=== PATIENT | female | born 1955 | race Caucasian/White ===

== ENCOUNTER → 2017-04-03 | Outpatient (CLI) | payer BC ==
[~2017-04-03] MED LIST: ACET-2267 PO; ASP81CT PO; ASPI-892 PO; AZAT50TA PO; BUDE3CAP5 PO; CHLO-159 PO; CLOP75TA PO; DICY20TA10 PO; LRT10T PO; METO-274 PO; METO100T5 PO; METR500T21 PO; OMEP40CA36 PO; PRAV20TA3 PO; PRV20T PO; RNT150T PO; VITA1CAP PO; [UNRECOGNIZED DRUG - OTHER] PO
--- NOTE | 2017-04-03 19:51 | Diagnostic Imaging Report ---
EXAMINATION: Three views of the left ribs. INDICATION: Left lower chest wall pain. FINDINGS: No left rib fracture is seen. The left lung appears normal. The heart size is slightly prominent. IMPRESSION: No left rib fracture seen. Dictated by: Dictated on workstation # [id number]
== END ==
LOC: RAD 14:02
PROVIDERS: ATTEND Nurse Practitioner Family
DX: R07.81 Pleurodynia (principal)
CPT/HCPCS: 71100

== ENCOUNTER → 2017-08-26 | Outpatient (CLI) | payer BC ==
[~2017-08-26] MED LIST changes: -METO-274 PO; +METO-395 PO
--- NOTE | 2017-08-27 18:30 | Diagnostic Imaging Report ---
Bilateral screening mammogram 2D views with tomosynthesis The current study was also evaluated with a Computer Aided Detection (CAD) system. Indication: Screening. No current complaints stated on the questionnaire. COMPARISON: 08/02/2014. FINDINGS: The breasts are composed of heterogeneously dense parenchyma which may decrease mammographic sensitivity. Benign-appearing calcifications are seen. Allowing for technique and positional differences, no suspicious change is seen. IMPRESSION: Dense breasts with no definite change. ACR BI-RADS Category 2: Benign findings. Result letter will be mailed to the patient. Note: At least 10% of breast cancer is not imaged by mammography. Dictated on workstation # [id number]
== END ==
LOC: RAD 13:53
PROVIDERS: ATTEND Nurse Practitioner Family
DX: Z12.31 Encounter for screening mammogram for malignant neoplasm of breast (principal)
CPT/HCPCS: 77067

== ENCOUNTER → 2018-06-15 | Outpatient (REF) ==
--- NOTE | 2018-06-15 15:09 | Diagnostic Imaging Report ---
INDICATION: Injury to the right wrist with pain and swelling. TIME OF EXAM: 2:40 PM FINDINGS: Three views of the right wrist demonstrates a tiny well-corticated osseous density adjacent to the ulnar styloid consistent with an old avulsion. Distal radius and ulna are without acuity. The carpus is unremarkable. Metacarpals are intact. No acute fracture is seen. IMPRESSION: No acute bony abnormality is detected. Dictated by: Dictated on workstation # [id number]
== END | disposition home or self-care (01) ==
LOC: OCC 13:53
PROVIDERS: ATTEND Nurse Practitioner Family
CPT/HCPCS: 73110

== ENCOUNTER → 2019-08-06 | Outpatient (CLI) | payer BC ==
[~2019-08-06] MED LIST changes: +METR-145 PO; -METR500T21 PO
--- NOTE | 2019-08-09 09:54 | Diagnostic Imaging Report ---
INDICATION: Routine screening. Comparison is made with prior mammogram from 08/26/2017 and 08/02/2014. 2-D and 3-D bilateral screening mammography was performed with CAD. The current study was also evaluated with a Computer Aided Detection (CAD) system. 3-D tomosynthesis was also performed and reviewed. Both breasts are heterogeneously dense, limiting the sensitivity of mammography. Benign calcifications have increased in both breasts. No dominant mass or malignant appearing microcalcifications are seen. Axillae are unremarkable. IMPRESSION: No mammographic features suspicious for malignancy are identified. ACR BI-RADS Category 2: Benign findings. Result letter will be mailed to the patient. Note: At least 10% of breast cancer is not imaged by mammography. Dictated by: Dictated on workstation # [id number]
== END ==
LOC: RAD 14:41
PROVIDERS: ATTEND Nurse Practitioner Family
DX: Z12.31 Encounter for screening mammogram for malignant neoplasm of breast (principal)
CPT/HCPCS: 77067

== ENCOUNTER 2019-09-13 15:25 | Outpatient (RCR) | payer BC ==
[~2019-09-13 15:25] MED LIST changes: -METO-395 PO; +MTP100TCR PO; +OMEP40CA27 PO; -OMEP40CA36 PO
== END 2019-10-22 09:00 | disposition home or self-care (01) ==
DX: G62.9 Polyneuropathy, unspecified (principal); K50.90 Crohn's disease, unspecified, without complications; M54.12 Radiculopathy, cervical region; I10 Essential (primary) hypertension; M54.5 Low back pain; R19.7 Diarrhea, unspecified

== ENCOUNTER → 2020-06-15 | Outpatient (CLI) | payer BC ==
--- NOTE | 2020-06-15 10:14 | Diagnostic Imaging Report ---
INDICATION: Right shoulder pain. Time of exam 9:50 AM 3 views of the right shoulder were obtained. Glenohumeral and acromioclavicular alignment are normal. Acromiohumeral space is normal. No fracture or dislocation is seen. IMPRESSION: No acute bony abnormality is detected. Dictated by: Dictated on workstation # [id number]
--- NOTE | 2020-06-15 10:23 | Diagnostic Imaging Report ---
CLINICAL INDICATION: Patient with cervical radiculopathy. EXAM: MRI of the cervical spine performed without IV contrast. Sequences include sagittal T2, sagittal T1, sagittal T2 fat-sat, and axial T2. COMPARISON: None. FINDINGS: Likely mucus retention cyst involving the posterior nasopharynx. Limited visualization of posterior fossa is unremarkable. Cervical spinal cord has normal cord caliber with no abnormal signal. There is moderate amount of fluid in the sphenoid sinus. There is no acute cervical spine fracture or dislocation. There is no abnormal vertebral body signal. There are hypertrophic spurs involving the cervical spine. There is no significant paraspinal soft tissue abnormality. C1-C2: There are degenerative spurs involving the atlantoodontoid interval anteriorly. There is no significant central canal narrowing. C2-C3: There is moderate left facet arthropathy/hypertrophy. There is no significant right neural foramen narrowing. There is moderate left neural foramen narrowing. There is no significant right neural foramen narrowing or central canal narrowing. C3-C4: There is a mild diffuse disc bulge and left paracentral disc osteophyte complex and mild left facet arthropathy. There is mild left neural foramen narrowing and no significant right neural foramen narrowing. There is mild central canal narrowing. C4-C5: There is a diffuse disc bulge and moderate loss of disc space height and bilateral uncinate spurs. There is moderate central canal stenosis. There is severe left neural foramen narrowing and no significant right neural foramen narrowing. C5-C6: There is diffuse disc bulge and moderate loss of disc space height, posterior spurs and bilateral uncinate spurs. There is severe left neural foramen narrowing and moderate right neural foramen narrowing. There is moderate to severe central canal stenosis. C6-C7: There is mild diffuse disc bulge. There is mild central canal narrowing. There is no significant neural foramen narrowing. C7-T1: There is no significant central spinal canal or neural foramen narrowing. IMPRESSION: 1: There is moderate to severe multilevel cervical spine degenerative disc disease with diffuse disc bulges, disc spurs, uncinate spurs and facet arthropathy. These findings are worse at the C4-C5 and C5-C6 levels, as described above. 2: There is moderate sphenoid sinusitis. 3: Likely small mucus retention cyst involving the posterior nasopharynx. Dictated by: Dictated on workstation # [id number]
== END ==
LOC: RAD 09:04
DX: M47.22 Other spondylosis with radiculopathy, cervical region (principal); M48.02 Spinal stenosis, cervical region; M25.78 Osteophyte, vertebrae; M50.11 Cervical disc disorder with radiculopathy, high cervical region; J32.3 Chronic sphenoidal sinusitis
CPT/HCPCS: 72141; 73030

== ENCOUNTER 2021-06-27 05:30 | Outpatient (RCR) | payer BC ==
[~2021-06-27] VITALS: Ht 162.6 cm; Wt 46.8 kg
[~2021-06-27 05:30] MED LIST changes: +ALPR0.5T PO; +GABA-486 PO; +LIPA1CAP25 PO; -OMEP40CA27 PO; +OMEP40CA6 PO
== END 2021-06-27 11:14 | disposition home or self-care (01) ==
LOC: PREOP 05:30
PROVIDERS: ATTEND Internal Medicine
DX: Z01.812 Encounter for preprocedural laboratory examination (principal); K52.9 Noninfective gastroenteritis and colitis, unspecified; R10.12 Left upper quadrant pain
CPT/HCPCS: 87635

== ENCOUNTER 2021-06-29 07:38 | Day surgery (SDC) | payer BC ==
--- NOTE | 2021-06-21 06:05 | HISTORY AND PHYSICAL ---
DATE OF SERVICE: COLONOSCOPY HISTORY AND PHYSICAL HISTORY OF PRESENT ILLNESS: The patient is a 65-year-old white female referred by Dr. Gonzales for diagnostic colonoscopy. She has a past history of Crohn's disease and it has been over five years since her last colonoscopy. This was performed in 2013 and at that time, she did not have any evidence for Crohn's disease and the terminal ileum was unremarkable as well. She did have two hyperplastic polyps removed. She did have an admission for reported Crohn's exacerbation a year later in 2014. Her medical record was reviewed and CT findings did reveal a significant bowel wall thickening, predominantly involving the ileum. The sigmoid colon also appeared to reveal some thickening at that time suspicious for Crohn's changes. She was admitted and started on prednisone. She reports resolution of her symptoms and at some point, azathioprine was initiated. She has persisted in taking azathioprine and has had several short prednisone tapers in the interval if four or five years for milder perceived flares of Crohn's for which she reports responded well. Over the past two months, she has noted increased abdominal bloating, especially after meals and over the past several weeks, she has had about a 5-pound or 6-pound of weight loss due to the discomfort that she incurs within an hour or two of eating. She reports several loose nonbloody stools per day without incontinence. She has had no night sweats, chills, fever or arthralgia. PAST MEDICAL HISTORY: Significant for coronary artery disease. She underwent stent placement around 10 years ago and has had no subsequent problems, history of hyperlipidemia and hypertension. FAMILY HISTORY: She is not aware of any family history for colon cancer or GI tract malignancy other than a grandfather, who had cancer of the pancreas. He has one sister, who had breast cancer and a grandmother, who had coronary artery disease. SOCIAL HISTORY: The patient reports no past smoking or significant drinking history. REVIEW OF SYSTEMS: CONSTITUTIONAL: Pertinent for weight loss. Denies night sweats, chills or fever. GASTROINTESTINAL: As per HPI. CARDIOVASCULAR: The patient denies chest pain, orthopnea, PND, pedal edema, syncope or presyncope. PULMONARY: Denies cough, wheezing, and dyspnea on exertion or at rest. PHYSICAL EXAMINATION: GENERAL: Reveals a thin white female, did not appear to be in acute distress. VITAL SIGNS: Blood pressure 120/86 and weight 104. HEENT: Reveals some mild pallor. No evidence for scleral icterus. CHEST: Clear. CARDIOVASCULAR: Reveals a regular rate and rhythm without murmur, S3 or S4. ABDOMEN: Soft and supple. No mass or organomegaly noted. Mild discomfort in bilateral lower quadrant noted. No bruits noted. Bowel sounds positive. No distention appreciated. EXTREMITIES: Reveal no cyanosis, clubbing or edema. ASSESSMENT AND PLAN: The patient is being set up for diagnostic colonoscopy. The findings are suspicious for exacerbated Crohn's disease or possible partial small bowel obstruction likely due to past Crohn's disease. The patient is being set up for next week. Prep instructions were given and questions were answered. I thank you for the referral of this pleasant lady. Job ID: [id number] DocumentID: [id number] Dictated Date: 06/08/2021 11:58:45 Radio Reporter Date: 06/08/2021 12:53:41 Dictated By: KIRSTIN TERRELL MD
[2021-06-29] VITALS (7 sets, daily range): BP systolic 82–108; BP diastolic 51–75
[~2021-06-29] VITALS: Ht 162.6 cm; Wt 46.8 kg
[2021-06-29] MEDS ORDERED: ATROPINE INJ 0.4 MG/ML SDV IV ONE (07:39)
[2021-06-29] MEDS ORDERED: LIDOCAINE JELLY 2% 6 ML SYRINGE MM PRN (07:45)
[2021-06-29] MEDS ORDERED: LACTATED RINGERS 1,000 ML IV STA (07:45)
[2021-06-29] MEDS ORDERED: LACTATED RINGERS 1,000 ML IV ONE (07:48)
[2021-06-29] MEDS ORDERED: MIDAZOLAM 2 MG/2 ML (VERSED) VIAL ONE (08:32)
[2021-06-29] MEDS ORDERED: PROPOFOL INJECTION 50 ML IV ONE (08:33)
--- NOTE | 2021-06-29 10:34 | Pre-Op Note & Conscious Sedat ---
Pre-Operative Progress Note H&P Reviewed The H&P was reviewed, patient examined and no changes noted. Date H&P Reviewed: Jun 29, 2021 Time H&P Reviewed: 07:45 Conscious Sedation Pre-Proced ASA Score 2 For ASA 3 and 4: Consider anesthesia and medical clearance. Also, for patients with a history of failed moderate sedation consider anesthesia. Airway Lungs Heart ASA score ASA 1: a normal healthy patient ASA 2: a patient with a mild systemic disease (mid diabetes, controlled hypertension, obesity ASA 3: a patient with a severe systemic disease that limits activity (angina, COPD, prior Myocardial infarction) ASA 4: a patient with an incapacitating disease that is a constant threat to life (CHF, renal failure) ASA 5: a moribund patient not expected to survive 24 hrs. (ruptured aneurysm) ASA 6: a declared brain- patient whose organs are being harvested. For emergent operations, add the letter E after the classification Mallampati Classification Grade 2 Sedation Plan Analgesia, Amnesia, Plan communicated to team members, Discussed options with patient/fam, Discussed risks with patient/fam The patient is an appropriate candidate to undergo the planned procedure, sedation, and anesthesia. The patient immediately re-assessed prior to indication. KIRSTIN TERRELL MD Jun 29, 2021 10:34
--- NOTE | 2021-06-29 14:43 | OPERATIVE REPORT ---
DATE OF SERVICE: PANENDOSCOPY SUMMARY INDICATION FOR THE PROCEDURE: Study is done for evaluation of left upper quadrant abdominal pain and surveillance for Crohn's disease with weight loss. DESCRIPTION OF PROCEDURE: The patient was placed in the left lateral decubitus position. The endoscope was inserted in the oral cavity and under direct visualization, esophagus was intubated. Endoscope was passed down the esophagus through the stomach and second portion of the duodenum. Careful inspection was made as the endoscope was withdrawn. FINDINGS: The epiglottis, arytenoid aperture, posterior pharynx and true and false vocal folds were unremarkable on visual inspection. The proximal and mid esophagus was unremarkable. There is a moderate size hiatal hernia present, several centimeters of cardia is present above the level of the diaphragm secondary to this. There are some linear areas of erythema in the cardia present above the diaphragm without evidence for marginal ulcers. That was not evidence for erosive esophagitis or gross evidence suggesting Gan's. Biopsies were obtained from the GE junction. The cardia of the stomach was otherwise unremarkable. The fundus of the stomach revealed a little dependent erythema as to the antrum. Biopsies were obtained and submitted for Helicobacter. No evidence for ulceration was noted. The pylorus, pyloric channel, duodenal bulb and second portion of the duodenum as well as proximal third portion were unremarkable without evidence for ulceration and normal appearing villous architecture. ASSESSMENT: Moderate hiatal hernia is present without evidence for erosive esophagitis. There is some erythema noted at the Z line and some erythematous streaking in the cardia portion that is above the level of the diaphragm as well as some mild antral gastritis, for which biopsies are pending. I would advocate indefinite proton pump inhibitor therapy. We then proceeded with colonoscopy. Prior to undergoing colonoscopy, digital rectal evaluation was performed. Anal sphincter tone was normal and the perianal reflexes intact. There is a somewhat firm mass present in the anterior rectum to digital inspection. No evidence for internal or external hemorrhoids was noted. The mass was present approximately 3 cm above the anal verge. The colonoscope was then inserted into the rectum and under direct visualization advanced to cecum. The cecum was identified by identification of ileocecal valve and cecal strap. Roughly 20 cm of terminal ileum were inspected as well. FINDINGS: Roughly 3 by 4cm anterior rectal mass on gross visualization not typical for adenocarcinoma. Photographs were obtained and multiple biopsies were obtained and submitted. No obvious ulceration was noted. There was no evidence to suggest active Crohn's disease throughout the entire colon or distal 20 cm of terminal ileum was inspected. Mild diverticular disease confined to the sigmoid colon was present. In the mid sigmoid colon approximately 25 to 30 cm from the anal verge where 2 inflammatory appearing polyps were biopsied and ablated after obtaining photographs with minimal blood loss. The descending colon, splenic flexure, transverse colon, hepatic flexure, ascending colon, cecum and terminal ileum were unremarkable. ASSESSMENT: There is an anterior rectal mass and roughly 3 x 4 cm in size. It is atypical in appearance for adenocarcinoma. My concern is this may be an extrinsic to the colon. It would be in right location to possibly be uterine in etiology, less likely bladder. It did not have the appearance of Crohn's ulceration. Multiple biopsies were obtained and submitted for histopathology and will discuss my concerns with pathologist. We will await histopathology before making further recommendations. Mild diverticular disease confined to the sigmoid colon was present and again, no evidence for active Crohn's disease was noted throughout the colon or distal 20 cm of terminal ileum. Job ID: [id number] DocumentID: [id number] Dictated Date: 06/29/2021 09:36:55 Hims Clerk Date: 06/29/2021 14:43:22 Dictated By: KIRSTIN TERRELL MD MTDD
== END 2021-06-29 10:40 | disposition home or self-care (01) ==
LOC: ENDO 07:38
PROVIDERS: ATTEND Internal Medicine
DX: K29.60 Other gastritis without bleeding (principal); K63.5 Polyp of colon; K44.9 Diaphragmatic hernia without obstruction or gangrene; K31.89 Other diseases of stomach and duodenum; K22.70 Barrett's esophagus without dysplasia; K62.89 Other specified diseases of anus and rectum; K57.30 Diverticulosis of large intestine without perforation or abscess without bleeding; E11.9 Type 2 diabetes mellitus without complications; E78.5 Hyperlipidemia, unspecified; I10 Essential (primary) hypertension; I25.10 Atherosclerotic heart disease of native coronary artery without angina pectoris; Z95.1 Presence of aortocoronary bypass graft; Z79.899 Other long term (current) drug therapy; Z80.3 Family history of malignant neoplasm of breast; Z80.0 Family history of malignant neoplasm of digestive organs

== ENCOUNTER → 2021-07-04 | Outpatient (CLI) | payer BC ==
[~2021-07-04] MED LIST changes: +BARIUM SUSPENSION 2.1% (VANILLA SILQ) 450 ML PO ONE; +CATHETER FLUSH 10 ML SYR IV PRN; +HOLD METFORMIN - RECEIVED CONTRAST 20 ML VIAL IV SCH; +IOHEXOL 350 MG/ML 100 ML (OMNIPAQUE 350) VIAL IV ONE; +NS 100 ML (IVPB) BAG IV ONE
--- NOTE | 2021-07-04 11:23 | Diagnostic Imaging Report ---
PROCEDURE: CT abdomen and pelvis with and without contrast. TECHNIQUE: Precontrast acquisitions were acquired through the abdomen and pelvis. Multiple contiguous axial images were obtained through the abdomen and pelvis after the administration of intravenous contrast. Auto Exposure Controls were utilized during the CT exam to meet ALARA standards for radiation dose reduction. INDICATION: Rectal mass. COMPARISON: Correlation is made with prior CT from 08/28/2015. FINDINGS: The lung bases are clear apart from some minimal scarring or atelectasis in the left lower lobe. There is some mild generalized low density throughout the liver consistent with hepatic steatosis. No discrete liver mass is identified. Gallbladder is unremarkable. There is no biliary ductal dilatation. The pancreas and spleen are unremarkable. There is a small nodule in the right adrenal gland, stable. Left adrenal gland is unremarkable. Kidneys are unremarkable. Aorta is nonaneurysmal. Bowel loops are normal in caliber. There does appear to be some long segment of wall thickening involving the sigmoid colon suspicious for colitis or diverticulitis. No discrete fluid collection is seen. There is no bowel obstruction. No free fluid or free air is identified. Uterus is unremarkable. Bladder is unremarkable. IMPRESSION: There is a long segment of wall thickening involving the sigmoid colon consistent with nonspecific colitis or diverticulitis. No fluid collection or abscess formation is seen. There is no bowel obstruction. No other significant abnormality is detected. Dictated by: Dictated on workstation # [id number]
== END ==
LOC: RAD 09:51
PROVIDERS: ATTEND Internal Medicine
DX: N28.89 Other specified disorders of kidney and ureter (principal)
CPT/HCPCS: 74178

== ENCOUNTER → 2023-05-13 | Outpatient (CLI) | payer MEDICARE ==
[~2023-05-13] MED LIST changes: -BARIUM SUSPENSION 2.1% (VANILLA SILQ) 450 ML PO ONE; -CATHETER FLUSH 10 ML SYR IV PRN; +DICY20TA PO; -DICY20TA10 PO; -HOLD METFORMIN - RECEIVED CONTRAST 20 ML VIAL IV SCH; -IOHEXOL 350 MG/ML 100 ML (OMNIPAQUE 350) VIAL IV ONE; -NS 100 ML (IVPB) BAG IV ONE
--- NOTE | 2023-05-13 14:43 | Diagnostic Imaging Report ---
INDICATION: Crohn's disease and right upper quadrant pain. PROCEDURE: Ultrasound abdomen complete. TECHNIQUE: Multiple real-time grayscale images were obtained of the abdomen in various projections. The liver is enlarged at 20 cm. Portal vein is patent and shows normal direction of flow. Liver is markedly heterogeneous. There are areas of nodularity and low attenuation, concerning for liver masses. No definite biliary ductal dilatation is seen. Gallbladder is markedly thick-walled approximately 6 mm. There may be minimal pericholecystic fluid. No stones are seen. There is no sludge. Pancreas unremarkable. Spleen is normal in size. Aorta is nonaneurysmal. IVC is patent. Kidneys are unremarkable apart from a small left renal cyst approximately 10 mm in size. There is no ascites. IMPRESSION: 1. Significant abnormal appearance to the liver which shows marked parenchymal heterogeneity and questionable numerous liver masses. Dedicated CT of the abdomen and pelvis would be recommended for further evaluation. In addition, the gallbladder is markedly thick-walled without evidence of cholelithiasis or sludge. Dictated by: Dictated on workstation # [id number]
== END ==
LOC: RAD 07:45
PROVIDERS: ATTEND Internal Medicine
DX: K82.8 Other specified diseases of gallbladder (principal); K50.90 Crohn's disease, unspecified, without complications
CPT/HCPCS: 76700

== ENCOUNTER → 2023-05-21 | Outpatient (CLI) | payer MEDICARE ==
[~2023-05-21] MED LIST changes: +HOLD METFORMIN - RECEIVED CONTRAST 20 ML VIAL IV SCH; +IOHEXOL 350 MG/ML 100 ML (OMNIPAQUE 350) VIAL IV ONE; +NS 100 ML (IVPB) BAG IV ONE
--- NOTE | 2023-05-21 09:42 | Diagnostic Imaging Report ---
PROCEDURE: CT abdomen with contrast only. TECHNIQUE: Multiple contiguous axial images were obtained through the abdomen after the administration of intravenous contrast. Auto Exposure Controls were utilized during the CT exam to meet ALARA standards for radiation dose reduction. INDICATION: Right and left upper quadrant pain. Correlation is made prior CT from 07/04/2021. The heart appears to be enlarged. There is some scarring or atelectasis in the lingula. The liver is enlarged at approximately 20 cm. There are numerous low-attenuation masses throughout the liver consistent with hepatic metastatic disease. Gallbladder is unremarkable. There is some perihepatic and perisplenic ascites. There is a low-attenuation mass that has developed within the pancreatic tail measuring approximately 4.8 x 3.3 cm, concerning for pancreatic malignancy. No adrenal mass is identified. Kidneys are unremarkable. Aorta is heavily calcified but nonaneurysmal. Bowel loops appear to be normal caliber. IMPRESSION: Development of pancreatic tail mass concerning for pancreatic malignancy. There has also been development of innumerable solid-appearing masses throughout the liver consistent with hepatic metastatic disease. Dictated by: Dictated on workstation # [id number]
== END ==
LOC: RAD 07:45
PROVIDERS: ATTEND Internal Medicine
DX: K86.89 Other specified diseases of pancreas (principal); R16.0 Hepatomegaly, not elsewhere classified
CPT/HCPCS: 74160

== ENCOUNTER 2023-05-25 08:19 | Inpatient (IN) | payer MEDICARE ==
[~2023-05-25] VITALS: Ht 160 cm; Wt 46.8 kg
[~2023-05-25 08:19] MED LIST changes: -HOLD METFORMIN - RECEIVED CONTRAST 20 ML VIAL IV SCH; -IOHEXOL 350 MG/ML 100 ML (OMNIPAQUE 350) VIAL IV ONE; -NS 100 ML (IVPB) BAG IV ONE
--- NOTE | 2023-05-25 08:44 | ED GI ---
General Chief Complaint: Abdominal/GI Problems Stated Complaint: ABD PAIN/CONFUSED/SLURRING WORDS Nursing Triage Note: PT TO RM 5 PER W/C PT BROUGHT TO ED BY DAUGHTER. PT CO OF ABD PAIN R UPPER ABD. PT STATES HAS HAD PAIN FOR A FEW WEEKS AND HAD CT LAST WEEK. DAUGHTER STATES HAS SLURRING OF SPEECH AND CONFUSION FOR A FEW WEEKS. Source of Information: Patient, Family Exam Limitations: No Limitations History of Present Illness Date Seen by Provider: May 25, 2023 Time Seen by Provider: 08:32 Initial Comments 67-year-old female presents to the emergency department today with her daughter. She has right upper quadrant abdominal pain that radiates across her epigastric region into the left upper abdomen. Symptoms present for about 2 weeks. Her daughter has also noticed some slurred speech and confusion over that span. She saw her primary care doctor, Dr. Ramos who ultimately ordered a CT scan. She had this done on Friday but Dr. Ramos was out on and Friday so they have not yet seen the results. Unfortunately record review shows that she has a mass in the tail of her pancreas with likely innumerable hepatic mets. She states she is having bowel movements. She is urinating normally. No nausea or vomiting. All other systems reviewed and negative except documented per HPI. Voice recognition software was used to help create this chart Allergies and Home Medications Allergies Coded Allergies: sulfamethoxazole (Verified Allergy, Mild, RASH, 08/29/15) trimethoprim (Verified Allergy, Mild, RASH, 08/29/15) Patient Home Medication List Home Medication List Reviewed: Yes Acetaminophen (Tylenol Extra Strength) 500 Mg Tablet, 1,000 MG PO Q4H PRN for PAIN, (Reported) Entered as Reported by: SEBAS ELIAS on 08/29/15 1258 Alprazolam (Xanax) 0.5 Mg Tablet, 0.5 MG PO BID, (Reported) Entered as Reported by: REBECA AMADOR on 06/20/21 1816 Aspirin (Aspirin Ec Tab) 81 Mg Tabec, 81 MG PO DAILY, (Reported) Entered as Reported by: VILMA BRADLEY on 11/17/14 0839 Azathioprine (Azathioprine) 50 Mg Tablet, 100 MG PO DAILY, (Reported) Entered as Reported by: SEBAS ELIAS on 08/29/15 1251 Gabapentin (Gabapentin) 100 Mg Capsule, 100 MG PO Q8H, (Reported) Entered as Reported by: REBECA AMADOR on 06/20/21 181 Metoprolol Succinate (Metoprolol Succinate) 100 Mg Tab.er.24h, 100 MG PO DAILY, (Reported) Entered as Reported by: SEBAS ELIAS on 08/29/15 1251 Omeprazole (Omeprazole) 40 Mg Capsule.dr, 40 MG PO DAILY, (Reported) Entered as Reported by: SEBAS ELIAS on 08/29/15 1256 Pravastatin Sodium (Pravastatin Sodium) 20 Mg Tablet, 20 MG PO HS, (Reported) Entered as Reported by: REBECA AMADOR on 06/20/211815 Vitamin B Complex (Vitamin B Complex) 1 Each Capsule, 1 CAP PO DAILY, (Reported) Entered as Reported by: SEBAS ELIAS on 08/29/15 1258 Review of Systems Review of Systems Constitutional: see HPI Past Asdkvya-Bafbvf-Wicqnc Hx Patient Social History Tobacco Use?: No Smoking Status: Former Smoker Substance use?: No Alcohol Use?: No Pt feels they are or have been: No Immunizations Up To Date Tetanus Booster (TDap): Unknown First/Initial COVID19 Vaccinat: YES Second COVID19 Vaccination Bao: YES Past Medical History Surgery/Hospitalization HX: IBS, CHRON'S, HTN, Surgeries: Yes (Hemorrhiods surgery >5 yrs ago) Cardiac, Coronary Stent Respiratory: No Cardiac: No Coronary Artery Disease, Hypertension Neurological: No Reproductive Disorders: No Female Reproductive Disorders: Denies Sexually Transmitted Disease: No HIV/AIDS: No Genitourinary: No Gastrointestinal: Yes (Chrons DS since 1982) Crohns Disease Musculoskeletal: No Endocrine: No HEENT: No Loss of Vision: Denies Hearing Impairment: Denies Cancer: No Psychosocial: No Anxiety Integumentary: No Blood Disorders: No Family Medical History Arthritis Colon cancer Completed stroke Hypertension Kidney disease Neoplasm Cancer, Renal Disease Physical Exam Vital Signs Vital Signs - First Documented 05/25/23 08:30 Temp 36.7 Pulse 75 Resp 18 B/P (MAP) 103/68 (80) Pulse Ox 99 Capillary Refill : Less Than 3 Seconds Height/Weight/BMI Height: 5'3.00" Weight: 98lbs. 9.0oz. 44.043766ol; 17.70 BMI Method:Stated General Appearance: WD/WN, no apparent distress HEENT: normal ENT inspection, other Neck: non-tender, supple Respiratory: chest non-tender, lungs clear, normal breath sounds, no respiratory distress Cardiovascular: regular rate, rhythm, no murmur Gastrointestinal: soft, tenderness (Tenderness palpation diffusely about the upper abdomen. There is voluntary guarding. There is mild distention to the abdomen but overall the abdomen is soft.) Extremities: non-tender, normal inspection, no calf tenderness, normal capillary refill Back: normal inspection, no CVA tenderness, no vertebral tenderness Neurologic/Psychiatric: alert, oriented x 3 Skin: normal color, warm/dry Progress/Results/Core Measures Results/Orders Lab Results Laboratory Tests Test 05/25/23 08:38 Range/Units White Blood Count 21.6 H 4.3-11.0 10^3/uL Red Blood Count 3.21 L 3.80-5.11 10^6/uL Hemoglobin 9.4 L 11.5-16.0 g/dL Hematocrit 28 L 35-52 % Mean Corpuscular Volume 86 80-99 fL Mean Corpuscular Hemoglobin 29 25-34 pg Mean Corpuscular Hemoglobin Concent 34 32-36 g/dL Red Cell Distribution Width 22.2 H 10.0-14.5 % Platelet Count 201 130-400 10^3/uL Mean Platelet Volume 10.9 9.0-12.2 fL Immature Granulocyte % (Auto) 2 % Neutrophils (%) (Auto) 85 H 42-75 % Lymphocytes (%) (Auto) 4 L 12-44 % Monocytes (%) (Auto) 8 0-12 % Eosinophils (%) (Auto) 1 0-10 % Basophils (%) (Auto) 0 0-10 % Neutrophils # (Auto) 18.3 H 1.8-7.8 10^3/uL Lymphocytes # (Auto) 0.9 L 1.0-4.0 10^3/uL Monocytes # (Auto) 1.7 H 0.0-1.0 10^3/uL Eosinophils # (Auto) 0.2 0.0-0.3 10^3/uL Basophils # (Auto) 0.1 0.0-0.1 10^3/uL Immature Granulocyte # (Auto) 0.4 H 0.0-0.1 10^3/uL Neutrophils % (Manual) 74 % Lymphocytes % (Manual) 4 % Monocytes % (Manual) 5 % Eosinophils % (Manual) 1 % Basophils % (Manual) 0 % Band Neutrophils 16 % Polychromasia SLIGHT Hypochromasia MARKED Anisocytosis MARKED Target Cells MODERATE Sodium Level 129 L 135-145 MMOL/L Potassium Level 4.3 3.6-5.0 MMOL/L Chloride Level 95 L 98-107 MMOL/L Carbon Dioxide Level 22 21-32 MMOL/L Anion Gap 12 5-14 MMOL/L Blood Urea Nitrogen 33 H 7-18 MG/DL Creatinine 0.75 0.60-1.30 MG/DL Estimat Glomerular Filtration Rate 88 BUN/Creatinine Ratio 44 Glucose Level 96 70-105 MG/DL Calcium Level 8.0 L 8.5-10.1 MG/DL Corrected Calcium 9.2 8.5-10.1 MG/DL Total Bilirubin 6.4 H 0.1-1.0 MG/DL Aspartate Amino Transf (AST/SGOT) 66 H 5-34 U/L Alanine Aminotransferase (ALT/SGPT) 18 0-55 U/L Alkaline Phosphatase 857 H 40-136 U/L Ammonia 42 H 11-32 UMOL/L Total Protein 5.4 L 6.4-8.2 GM/DL Albumin 2.5 L 3.2-4.5 GM/DL Lipase 12 8-78 U/L My Orders Orders - CAITLIN MORRISSEY DO Lipase (05/25/23 08:38) Ua Culture If Indicated (05/25/23 08:38) Ammonia (05/25/23 08:38) Ct Head Wo (05/25/23 08:38) Cbc With Automated Diff (05/25/23 08:38) Comprehensive Metabolic Panel (05/25/23 08:38) Fentanyl Injection (Fentanyl Injection (05/25/23 08:45) Ns Iv 1000 Ml (Ns Iv 1000 Ml) (05/25/23 08:45) Manual Differential (05/25/23 08:38) Ed Admission (Communication) (05/25/23 10:02) Medications Given in ED Current Medications Medications Dose Ordered Sig/Robert Route Start Time Stop Time Status Last Admin Dose Admin Fentanyl Citrate 50 mcg ONCE ONCE IVP 05/25/23 08:45 05/25/23 08:46 DC 05/25/23 08:45 50 MCG Vital Signs/I&O 05/25/23 05/25/23 08:30 10:22 Temp 36.7 Pulse 75 57 Resp 18 18 B/P (MAP) 103/68 (80) 103/60 Pulse Ox 99 99 Blood Pressure Mean: 80 Departure Communication (Admissions) Patient is borderline hypotensive, improved with IV fluids. I reviewed her CT scan that was taken few days ago. This shows a mass in the tail of the pancreas, multiple liver masses as well as a spleen mass. This is highly concerning for carcinoma. I did a CT scan of her head due to reports of slurred speech and weakness. There is no evidence for metastatic disease or other acute intracranial abnormality. Her labs are otherwise reassuring. She does have significant mount of abdominal pain. With that I spoke with the radiologist who states that the liver masses would likely be amenable to CT-guided biopsy. I spoke with Dr. Gomez who agrees to admit the patient for abdominal pain and to help coordinate further care and biopsy. Impression Primary Impression: Splenic mass Additional Impressions: Pancreatic mass Liver mass Abdominal pain Qualified Codes: R10.13 - Epigastric pain Disposition: ADMITTED INPATIENT Condition: Stable Departure-Patient Inst. Referrals: KIRSTIN RAMOS MD (PCP/Family) Primary Care Physician CAITLIN MORRISSEY DO May 25, 2023 08:44
[2023-05-25] MEDS ORDERED: NS IV 1000 ML 1,000 ML IV SCH (08:45)
[2023-05-25] MEDS ORDERED: fentaNYL INJECTION 100 MCG/2 ML VIAL IVP ONE (08:45)
[2023-05-25 08:54] LABS: BASOPHILS # (AUTO) 0.1 10^3/uL (0.0-0.1); BASOPHILS % (AUTO) 0 % (0-10); EOSINOPHILS # (AUTO) 0.2 10^3/uL (0.0-0.3); EOSINOPHILS % (AUTO) 1 % (0-10); HEMATOCRIT 28 % (35-52); HEMOGLOBIN 9.4 g/dL (11.5-16.0); LYMPHOCYTES # (AUTO) 0.9 10^3/uL (1.0-4.0); LYMPHOCYTES % (AUTO) 4 % (12-44); MEAN CORPUSCULAR HEMOGLOBIN 29 pg (25-34); MEAN CORPUSCULAR HGB CONC 34 g/dL (32-36); MEAN CORPUSCULAR VOLUME 86 fL (80-99); MEAN PLATELET VOLUME 10.9 fL (9.0-12.2); MONOCYTES # (AUTO) 1.7 10^3/uL (0.0-1.0); MONOCYTES % (AUTO) 8 % (0-12); NEUTROPHILS # (AUTO) 18.3 10^3/uL (1.8-7.8); NEUTROPHILS % (AUTO) 85 % (42-75); PLATELET COUNT 201 10^3/uL (130-400); WHITE BLOOD COUNT 21.6 10^3/uL (4.3-11.0)
[2023-05-25 09:18] LABS: ALBUMIN 2.5 GM/DL (3.2-4.5); POTASSIUM 4.3 MMOL/L (3.6-5.0)
[2023-05-25 09:20] LABS: TOTAL PROTEIN 5.4 GM/DL (6.4-8.2)
[2023-05-25 09:22] LABS: BILIRUBIN,TOTAL 6.4 MG/DL (0.1-1.0)
[2023-05-25 09:24] LABS: CREATININE SERUM 0.75 MG/DL (0.60-1.30)
--- NOTE | 2023-05-25 09:25 | Diagnostic Imaging Report ---
PROCEDURE: CT head without contrast. TECHNIQUE: Multiple contiguous axial images were obtained through the brain without the use of intravenous contrast. Auto Exposure Controls were utilized during the CT exam to meet ALARA standards for radiation dose reduction. INDICATION: Slurred speech and confusion. Comparison is made with prior head CT from 11/16/2014. Ventricles and sulci are stable. No sulcal effacement or midline shift is identified. No acute intra-axial or extra-axial hemorrhage is detected. Cisterns are patent. Visualized paranasal sinuses are clear. IMPRESSION: No acute intracranial process is detected. Dictated by: Dictated on workstation # [id number]
[2023-05-25 09:52] LABS: ANISOCYTOSIS MARKED; BAND NEUTROPHILS 16 %; BASOPHILS % (MANUAL) 0 %; EOSINOPHILS % (MANUAL) 1 %; HYPOCHROMASIA MARKED; LYMPHOCYTES % (MANUAL) 4 %; MONOCYTES % (MANUAL) 5 %; NEUTROPHILS % (MANUAL) 74 %; POLYCHROMASIA SLIGHT; TARGET CELLS MODERATE
--- NOTE | 2023-05-25 10:21 | History & Physical-Hospitalist ---
History of Present Illness HPI/Chief Complaint Patient is a 67-year-old female with past medical history of hypertension and Crohn's disease who presented to the emergency department due to confusion, and abdominal pain. She reports she has had abdominal pain across the top of her abdomen for the past few weeks. She has also felt very bloated. She was seen by Dr. Ramos and had an abdominal ultrasound done on May 13 and then had a subsequent abdominal CT on the . Per the ER she was unaware of the results of these. Unfortunately these did show the development of a pancreatic tail mass and innumerable liver lesions concerning for metastatic disease. She was also found to be clinically quite dehydrated had an elevated total bili of 6.4 and is hyponatremic. Daughter reports she has hardly been able to walk due to her weakness. Plan is to admit for IV fluids and if able will get CT guided biopsy in the hospital. Source: patient Date Seen 05/25/23 Time Seen by a Provider: 10:18 Attending Physician Kirstin Ramos MD PCP Admitting Physician: Attending Physician: Referring Physician Date of Admission Home Medications & Allergies Home Medications Reviewed patient Home Medication Reconciliation performed by pharmacy medication reconciliations oscillograph technician and/or nursing. Patients Allergies have been reviewed. Allergies Allergies Coded Allergies sulfamethoxazole (Verified Allergy, Mild, RASH, 08/29/15) trimethoprim (Verified Allergy, Mild, RASH, 08/29/15) Past Oajmqha-Jehxam-Qfnnkw Hx Patient Social History Tobacco Use?: No Smoking Status: Former Smoker Substance use?: No Alcohol Use?: No Pt feels they are or have been: No Immunizations Up To Date First/Initial COVID19 Vaccinat: YES Second COVID19 Vaccination Bao: YES Tetanus Booster (TDap): Unknown Current Status Advance Directives: No Communicates: Verbally Primary Language: Grenadian Preferred Spoken Language: Grenadian Is interpretation needed?: No Implanted or Applied Medical D: None Past Medical History Surgeries: Cardiac, Coronary Stent Coronary Artery Disease, Hypertension Sexually Transmitted Disease: No HIV/AIDS: No Crohns Disease Loss of Vision: Denies Hearing Impairment: Denies Anxiety Blood Disorders: No Family Medical History Arthritis Colon cancer Completed stroke Hypertension Kidney disease Neoplasm Cancer, Renal Disease Review of Systems Constitutional: see HPI Physical Exam Physical Exam Vital Signs Vital Signs - First Documented 05/25/23 05/25/23 08:30 11:37 Temp 36.7 Pulse 75 Resp 18 B/P (MAP) 103/68 (80) Pulse Ox 99 O2 Delivery Room Air Capillary Refill : Less Than 3 Seconds Height, Weight, BMI Height: 5'3.00" Weight: 98lbs. 9.0oz. 44.734443um; BMI Method:Stated General Appearance: Chronically ill, Thin Respiratory: Lungs Clear, No Respiratory Distress Cardiovascular: Regular Rate, Rhythm Gastrointestinal: Normal Bowel Sounds, Distended; No Guarding; Hepatomegaly; No Tenderness Neurologic/Psychiatric: Alert, Oriented x3 (slurring speech some and ER reports fentanyl precipitated this) Results Results/Procedures Labs Laboratory Tests 05/25/23 08:38 Patient resulted labs reviewed. Imaging: Reviewed Imaging Report Imaging [facility], [place] NAME: DIVYA GONZALES [facility] REC#: [id number] PT STATUS: REG CLI : 1955 PHYSICIAN: KIRSTIN RAMOS MD ADMIT DATE: 05/13/23/RAD Signed Date of Exam:05/13/23 US ABDOMEN COMPLETE [id number] INDICATION: Crohn's disease and right upper quadrant pain. PROCEDURE: Ultrasound abdomen complete. TECHNIQUE: Multiple real-time grayscale images were obtained of the abdomen in various projections. The liver is enlarged at 20 cm. Portal vein is patent and shows normal direction of flow. Liver is markedly heterogeneous. There are areas of nodularity and low attenuation, concerning for liver masses. No definite biliary ductal dilatation is seen. Gallbladder is markedly thick-walled approximately 6 mm. There may be minimal pericholecystic fluid. No stones are seen. There is no sludge. Pancreas unremarkable. Spleen is normal in size. Aorta is nonaneurysmal. IVC is patent. Kidneys are unremarkable apart from a small left renal cyst approximately 10 mm in size. There is no ascites. IMPRESSION: 1. Significant abnormal appearance to the liver which shows marked parenchymal heterogeneity and questionable numerous liver masses. Dedicated CT of the abdomen and pelvis would be recommended for further evaluation. In addition, the gallbladder is markedly thick-walled without evidence of cholelithiasis or sludge. Dictated by: Dictated on workstation # [id number] Dict: 05/13/23 1425 Trans: 05/13/23 1824 [facility] [id number] Interpreted by: JASPER LY MD Electronically signed by: JASPER LY MD 05/13/23 1824 [facility] [place] [place] NAME: DIVYA GONZALES [facility] REC#: [id number] PT STATUS: REG ER : 1955 PHYSICIAN: CAITLIN MORRISSEY DO ADMIT DATE: 05/25/23/ER Draft Date of Exam:05/25/23 CT HEAD WO PROCEDURE: CT head without contrast. TECHNIQUE: Multiple contiguous axial images were obtained through the brain without the use of intravenous contrast. Auto Exposure Controls were utilized during the CT exam to meet ALARA standards for radiation dose reduction. INDICATION: Slurred speech and confusion. Comparison is made with prior head CT from 11/16/2014. Ventricles and sulci are stable. No sulcal effacement or midline shift is identified. No acute intra-axial or extra-axial hemorrhage is detected. Cisterns are patent. Visualized paranasal sinuses are clear. IMPRESSION: No acute intracranial process is detected. Dictated on workstation # [id number] Dict: 05/25/23922 Trans: 05/25/23924 [facility] [id number] Interpreted by: JASPER LY MD Electronically signed by: [facility] [place] NAME: DIVYA GONZALES [facility] REC#: [id number] PT STATUS: REG CLI : 1955 PHYSICIAN: KIRSTIN RAMOS MD ADMIT DATE: 05/21/23/RAD Signed Date of Exam:05/21/23 CT ABDOMEN W PROCEDURE: CT abdomen with contrast only. TECHNIQUE: Multiple contiguous axial images were obtained through the abdomen after the administration of intravenous contrast. Auto Exposure Controls were utilized during the CT exam to meet ALARA standards for radiation dose reduction. INDICATION: Right and left upper quadrant pain. Correlation is made prior CT from 07/04/2021. The heart appears to be enlarged. There is some scarring or atelectasis in the lingula. The liver is enlarged at approximately 20 cm. There are numerous low-attenuation masses throughout the liver consistent with hepatic metastatic disease. Gallbladder is unremarkable. There is some perihepatic and perisplenic ascites. There is a low-attenuation mass that has developed within the pancreatic tail measuring approximately 4.8 x 3.3 cm, concerning for pancreatic malignancy. No adrenal mass is identified. Kidneys are unremarkable. Aorta is heavily calcified but nonaneurysmal. Bowel loops appear to be normal caliber. IMPRESSION: Development of pancreatic tail mass concerning for pancreatic malignancy. There has also been development of innumerable solid-appearing masses throughout the liver consistent with hepatic metastatic disease. Dictated by: Dictated on workstation # [id number] Dict: 05/21/23 0906 Trans: 05/21/23 1604 CV [id number] Interpreted by: JASPER LY MD Electronically signed by: JASPER LY MD 05/21/23 1608 Assessment/Plan Admission Diagnosis Dehydration and weakness with intractable abd pain Admission Status: Inpatient Order (span 2 midnights) Reason for Inpatient Admission: see below Assessment and Plan Dehydration and weakness with intractable abd pain Presumed metastatic pancreatic cancer Hyponatremia Hyperbilirubinemia Transaminitis Continue IV fentanyl for pain control, hydrocodone added as well IVF fluids PT/OT Radiology consulted for biopsy Will need social work for likely Home Health Needs oncology referral Ammonia slightly elevated but not confused so defer lactulose for now Anemia Appears chronic reviewing labs from 2014 Leukocytosis WBC 21 UA pending HTN Hold home meds for hypotension Crohn's Reports Dr Ramos told her recently it was not Crohns? DVT ppx: SCDs and Ambulation only for hopeful bx tomorrow Diagnosis/Problems Diagnosis/Problems (1) Leukocytosis (2) Splenic mass (3) Pancreatic mass (4) Liver mass (5) Abdominal pain (6) Generalized weakness (7) LUQ abdominal pain (8) Hyperbilirubinemia DARVIN SOLITARIO MD May 25, 2023 10:20
[2023-05-25] MEDS ORDERED: ANTACID SUSPENSION 30 ML UDC PO PRN (11:00)
[2023-05-25] MEDS ORDERED: CALCIUM CARBONATE 500 MG CHEW TABLET PO PRN (11:00)
[2023-05-25] MEDS ORDERED: LACTULOSE SYRUP 10GM/15ML 30ML UDC PO PRN (11:00)
[2023-05-25] MEDS ORDERED: MILK OF MAGNESIA 400 MG/5 ML 30 ML UDC PO PRN (11:00)
[2023-05-25] MEDS ORDERED: MELATONIN 3 MG TABLET PO PRN (11:00)
[2023-05-25] MEDS ORDERED: ACETAMINOPHEN 325 MG TABLET PO PRN (11:00)
[2023-05-25] MEDS ORDERED: ONDANSETRON INJECTION 4 MG/2 ML (SDV) IV PRN (11:00)
[2023-05-25 11:25] VITALS: BP 103/60
[2023-05-25 11:37] VITALS: BP 91/54
[2023-05-25 12:30] LABS: CLARITY,URINE CLEAR; COLOR,URINE BROWN; GLUCOSE, URINE (UA) TRACE (NEGATIVE); PROTEIN,URINE 1+ (NEGATIVE)
[2023-05-25] MEDS ORDERED: LIDOCAINE UROJET 2% GEL 10 ML PKG TOP ONE (12:30)
[2023-05-25 12:31] LABS: BACTERIA,URINE NEGATIVE /HPF; BILIRUBIN,URINE 3+ (NEGATIVE); KETONES,URINE TRACE (NEGATIVE); LEUKOCYTE ESTERASE ,URINE NEGATIVE (NEGATIVE); NITRITE,URINE NEGATIVE (NEGATIVE); SQUAMOUS EPITHELIAL CELL,UR 0-2 /HPF; WBC,URINE RARE /HPF
[2023-05-25] MEDS: NS IV 1000 ML 1,000 ML IV SCH ×2 (13:34→23:17)
[2023-05-25 15:38] VITALS: BP 82/48
[2023-05-25] MEDS: HYDROcodone/ACETAMINOPHEN 5 MG/325 MG TABLET PO PRN (18:41)
[2023-05-25 19:23] VITALS: BP 78/48
[2023-05-25 20:32] VITALS: BP 80/42
[2023-05-25 23:15] VITALS: BP 90/55
[2023-05-26 04:11] VITALS: BP 91/52
[2023-05-26 06:10] LABS: HEMATOCRIT 27 % (35-52); HEMOGLOBIN 9.3 g/dL (11.5-16.0); MEAN CORPUSCULAR HEMOGLOBIN 30 pg (25-34); MEAN CORPUSCULAR HGB CONC 34 g/dL (32-36); MEAN CORPUSCULAR VOLUME 86 fL (80-99); MEAN PLATELET VOLUME 10.9 fL (9.0-12.2); PLATELET COUNT 177 10^3/uL (130-400); WHITE BLOOD COUNT 20.7 10^3/uL (4.3-11.0)
[2023-05-26 06:24] LABS: POTASSIUM 4.4 MMOL/L (3.6-5.0)
[2023-05-26 06:26] LABS: CALCIUM 7.5 MG/DL (8.5-10.1)
[2023-05-26 06:30] LABS: CREATININE SERUM 0.58 MG/DL (0.60-1.30)
[2023-05-26] MEDS: NS IV 1000 ML 1,000 ML IV SCH (06:37)
[2023-05-26] MEDS: HYDROcodone/ACETAMINOPHEN 5 MG/325 MG TABLET PO PRN ×4 (07:45→20:12)
[2023-05-26 08:00] VITALS: BP 104/57
[2023-05-26 09:50] LABS: INR 1.9 (0.8-1.4); PROTHROMBIN TIME PATIENT 21.3 SEC (12.2-14.7)
[2023-05-26] MEDS: fentaNYL INJECTION 100 MCG/2 ML VIAL IVP PRN (09:59)
[2023-05-26] MEDS ORDERED: LIDOCAINE 1% INJ 10 ML VIAL INJ ONE (10:15)
[2023-05-26] MEDS ORDERED: fentaNYL INJECTION 100 MCG/2 ML VIAL IVP ONE (10:15)
[2023-05-26] MEDS ORDERED: MIDAZOLAM INJ 2 MG/2 ML VIAL IVP ONE (10:15)
[2023-05-26 11:20] VITALS: BP 97/60
--- NOTE | 2023-05-26 11:37 | Occupational Therapy Eval ---
OT Evaluation-General/PLF Medical Diagnosis Admission Date May 25, 2023 at 10:41 Medical Diagnosis: Dehydration and weakness with intractable abd pain Onset Date: May 25, 2023 Therapy Diagnosis Therapy Diagnosis: WEAKNESS/debility Height/Weight Height (Feet): 5 Height (Inches): 3.00 Weight (Pounds): 98 Weight (Ounces): 9.0 Precautions Precautions/Isolations: Standard Precautions Referral Physician: KASSI Referral Reason: Activity Tolerance, Self Care, Evaluation/Treatment Medical History Additional Medical History 67-year-old female with past medical history of hypertension and Crohn's disease who presented to the emergency department due to confusion, and abdominal pain. She reports she has had abdominal pain across the top of her abdomen for the past few weeks. She has also felt very bloated. She was seen by Dr. Ramos and had an abdominal ultrasound done on May 13 and then had a subsequent abdominal CT on the . Per the ER she was unaware of the results of these. Unfortunately these did show the development of a pancreatic tail mass and innumerable liver lesions concerning for metastatic disease. She was also found to be clinically quite dehydrated had an elevated total bili of 6.4 and is hyponatremic. Daughter reports she has hardly been able to walk due to her weakness. Plan is to admit for IV fluids and if able will get CT guided biopsy in the hospital. Reviewed History: Yes Social History Home: Apartment Current Living Status: Alone ADL-Prior Level of Function SCALE: Activities may be completed with or without assistive devices. 0-Crjwhqrkty-lyxfubo completes the activity by him/herself with no assistance from a helper. 5-Set-up or Clean-up Assistance-helper sets up or cleans up; patient completes activity. [place] assists only prior to or following the activity. 4-Supervision or Touching Assistance-helper provides verbal cues and/or touching/steadying and/or contact guard assistance as patient completes act ivity. Assistance may be provided throughout the activity or intermittently. 3-Partial/Moderate Assistance-helper does LESS THAN HALF the effort. [place] lifts, holds or supports trunk or limbs, but provides less than half the effort. 2-Substantial/Maximal Assistance-helper does MORE THAN HALF the effort. [place] lifts or holds trunk or limbs and provides more than half the effort. 6-Xnccqtydy-clcxwu does ALL the effort. Patient does none of the effort to complete the activity. Or, the assistance of 2 or more helpers is required for the patient to complete the activity. If activity was not attempted, code reason: 7-Patient Refused. 9-Not Applicable-not attempted and the patient did not perform the activity before the current illness, exacerbation or injury. 10-Not Attempted due to Environmental Limitations-(lack of equipment, weather restraints, etc.). 88-Not Attempted due to Medical Conditions or Safety Concerns. Self Care: Independent Functional Cognition: Independent Drive Self: Yes OT Current Status Subjective Delayed verbal responses, daughter is present, patien is now aware of prognosis Pain Numeric Pain Scale: 5-Moderate Pain Location Body Site: Abdomen Mental Status/Objective Patient Orientation: Person, Place, Time, Situation Attachments: Dunn Catheter, IV Current Hand Dominance: Right Upper Extremity ROM BUE ROM WFLs Upper Extremity Coordination slow responsiveness Upper Extremity Sensation intact Upper Extremity Strength 3/5 grossly ADL-Treatment ADL-Current Patient declined use of restroom, oral, hair and face hygiene, dons socks EOB, NPO for surgery Eating (QC): 88 (NPO) Oral Hygiene (QC): 5 Shower/Bathe Self (QC): 7 Upper Body Dressing (QC): 5 Lower Body Dressing (QC): 4 On/Off Footwear (QC): 5 Toileting Hygiene (QC): 7 Education OT Patient Education: Correct positioning, Disease process, Energy conservatio n, Instructions to caregiver, Modified ADL techniques, Progress toward Goal/Update tx plan, Purpose of tx/functional activities, Reviewed precautions, Rehab process, Safety issues, Transfer techniques, Use of adapted equipment Teaching Recipient: Patient, Family Teaching Methods: Demonstration, Discussion Response to Teaching: Verbalize Understanding, Reinforcement Needed OT Longterm Goals Longterm Goals Time Frame: Jun 02, 2023 Eating (QC): 6 Oral Hygiene (QC): 6 Toileting Hygiene (QC): 5 Shower/Bathe Self (QC): 4 Upper Body Dressing (QC): 5 Lower Body Dressing (QC): 5 On/Off Footwear (QC): 5 1=Demonstrate adherence to instructed precautions during ADL tasks. 2=Patient will verbalize/demonstrate understanding of assistive devices/modifications for ADL. 3=Patient will improve strength/tolerance for activity to enable patient to perform ADL's. OT Education/Plan Problem List/Assessment Assessment: Decreased Activ Tolerance, Decreased UE Strength, Impaired Funct Balance, Impaired I ADL's, Impaired Self-Care Skills Discharge Recommendations Plan/Recommendations: Continue POC Therapy Discharge Recommendati: Post Acute OT Treatment Plan/Plan of Care Treatment,Training & Education: Yes Patient would benefit from OT for education, treatment and training to promote independence in ADL's, mobility, safety and/or upper extremity function for ADL's. Plan of Care: ADL Retraining, Caregiver Training, Cognitive Retraining, Concurrent Therapy, Functional Mobility, Group Exercise/Act as Ind, UE Funct Exercise/Act Treatment Duration: Jun 02, 2023 Frequency: 3 times per week (3-5 times per week) Estimated Hrs Per Day: .25 hour per day Agreement: Yes Rehab Potential: Fair All neds met, up in recliner. Time Start Time: 09:57 Stop Time: 10:14 DATE: May 26, 2023 Total Time Billed (hr/min): 17 Billed Treatment Time EVM 17 min HILLARY QUISPE OT May 26, 2023 11:37
--- NOTE | 2023-05-26 11:51 | Physical Therapy Evaluation ---
PT Evaluation-General Medical Diagnosis Admission Date May 25, 2023 at 10:41 Medical Diagnosis: Dehydration and weakness with intractable abd pain Onset Date: May 25, 2023 Therapy Diagnosis Therapy Diagnosis: debility/weakness Height/Weight Height (Feet): 5 Height (Inches): 3.00 Weight (Pounds): 98 Weight (Ounces): 9.0 Precautions Precautions/Isolations: Standard Precautions Referral Physician: KASSI Reason for Referral: Evaluation/Treatment Medical History Pertinent Medical History: CAD, HTN Additional Medical History Crohn's Current History ER via POV secondary abdominal pain Reviewed History: Yes Social History Home: Single Level Current Living Status: Alone Prior Prior Level of Function SCALE: Activities may be completed with or without assistive devices. 2-Xqzszvvwfw-mnzyhsm completes the activity by him/herself with no assistance from a helper. 5-Set-up or Clean-up Assistance-helper sets up or cleans up; patient completes activity. [place] assists only prior to or following the activity. 4-Supervision or Touching Assistance-helper provides verbal cues and/or touching/steadying and/or contact guard assistance as patient completes activity. Assistance may be provided throughout the activity or intermittently. 3-Partial/Moderate Assistance-helper does LESS THAN HALF the effort. [place] lifts, holds or supports trunk or limbs, but provides less than half the effort. 2-Substantial/Maximal Assistance-helper does MORE THAN HALF the effort. [place] lifts or holds trunk or limbs and provides more than half the effort. 1-Swmiqcdhc-rwxfez does ALL the effort. Patient does none of the effort to complete the activity. Or, the assistance of 2 or more helpers is required for the patient to complete the activity. If activity was not attempted, code reason: 7-Patient Refused. 9-Not Applicable-not attempted and the patient did not perform the activity before the current illness, exacerbation or injury. 10-Not Attempted due to Environmental Limitations-(lack of equipment, weather restraints, etc.). 88-Not Attempted due to Medical Conditions or Safety Concerns. Bed Mobility: 6 Transfers (B,C,W/C): 6 Gait: 6 Stairs: 6 Indoor Mobility (Ambulation): Independent Stairs: Independent Prior Devices Use: None PT Evaluation-Current Subjective Patient agrees to PT. Objective Patient Orientation: Normal For Age Attachments: Udnn Catheter, IV ROM/Strength ROM Lower Extremities bilateral LE WFL Strength Lower Extremities 3/5 grossly bilateral LE all planes Integumentary/Posture Bladder Incontinence: Dunn Cath Posture WFL Neuromuscular (Tone, Coordination, Reflexes) grossly intact Sensory Vision: Functional Hearing: Functional Hand Dominance: Right Transfers Sit to Lying (QC): 3 Lying to Sitting/Side of Bed(Q: 4 Sit to Stand (QC): 4 Gait Mode of Locomotion: Walk Anticipated Mode of Locomotion: Walk Walk 10 feet (QC): 4 Walk 50 ft with 2 Turns(QC): 4 Walk 150 ft (QC): 88 Distance: 75' Gait Assistive Device: FWW Comments/Gait Description slow, steady (fatigues quickly) Balance Sitting Static: Normal Sitting Dynamic: Normal Standing Static: Fair Standing Dynamic: Fair Assessment/Needs Patient will benefit from skilled PT to address functional strength and mobility to improve current LOF. Rehab Potential: Guarded PT Residential Goals Residential Goals PT Shellfish Bed Worker Goals Time Frame: Jun 07, 2023 Roll Left & Right (QC): 6 Sit to Lying (QC): 6 Lying-Sitting on Side/Bed(QC): 6 Sit to Stand (QC): 6 Chair/Vbt-ld-Aiffq Xfer(QC): 6 Toilet Transfer (QC): 6 Walk 10 feet (QC): 4 Walk 50ft with 2 Turns (QC): 4 Walk 150 ft (QC): 4 PT Plan Problem List Problem List: Activity Tolerance, Functional Strength, Balance, Gait, Transfer, Bed Mobility Treatment/Plan Treatment Plan: Continue Plan of Care Treatment Plan: Bed Mobility, Education, Functional Activity Hermes, Functional Strength, Gait, Safety, Therapeutic Exercise, Transfers Treatment Duration: Jun 07, 2023 Frequency: 6 times per week Estimated Hrs Per Day: .25 hour per day Patient and/or Family Agrees t: Yes Time Time In: 1000 Time Out: 1010 DATE: May 26, 2023 Total Billed Treatment Time: 10 Total Billed Treatment 1 visit EVModC 10 min ZACK LAMB PT May 26, 2023 11:51
[2023-05-26] MEDS ORDERED: NS IV NR (12:30)
[2023-05-26] MEDS ORDERED: PHYTONADIONE IV NR (12:30)
[2023-05-26] MEDS ORDERED: AZAT50TA16 PO (12:57)
[2023-05-26] MEDS ORDERED: METO50TA7 PO (12:57)
[2023-05-26] MEDS ORDERED: MULT-1136 PO (12:58)
[2023-05-26] MEDS ORDERED: ASPI-1238 PO (12:58)
[2023-05-26] MEDS ORDERED: ESCI20TA39 PO (12:58)
[2023-05-26] MEDS ORDERED: POLY17PO6 PO (12:59)
[2023-05-26 16:20] VITALS: BP 92/52
--- NOTE | 2023-05-26 16:22 | Progress Note - Hospitalist ---
Subjective HPI/CC On Admission Date Seen by Provider: May 26, 2023 Time Seen by Provider: 10:40 Patient is a 67-year-old female with past medical history of hypertension and Crohn's disease who presented to the emergency department due to confusion, and abdominal pain. She reports she has had abdominal pain across the top of her abdomen for the past few weeks. She has also felt very bloated. She was seen by Dr. Ramos and had an abdominal ultrasound done on May 13 and then had a subsequent abdominal CT on the . Per the ER she was unaware of the results of these. Unfortunately these did show the development of a pancreatic tail mass and innumerable liver lesions concerning for metastatic disease. She was also found to be clinically quite dehydrated had an elevated total bili of 6.4 and is hyponatremic. Daughter reports she has hardly been able to walk due to her weakness. Plan is to admit for IV fluids and if able will get CT guided biopsy in the hospital. Subjective/Events-last exam She is feeling tired. She has not been able to eat much. She has abdominal pain. She has had some nausea. Objective Exam Vital Signs Vital Signs Date Time Temp Pulse Resp B/P (MAP) Pulse Ox O2 Delivery O2 Flow Rate FiO2 05/26/23 11:20 36.6 76 14 97/60 (72) 94 Room Air Capillary Refill : Less Than 3 Seconds General Appearance: No Apparent Distress, Chronically ill, Thin Respiratory: Lungs Clear, No Respiratory Distress Cardiovascular: Regular Rate, Rhythm, No Murmur Gastrointestinal: Normal Bowel Sounds, Soft, Distended, Tenderness Extremity: Normal Inspection, Pedal Edema Neurologic/Psychiatric: Alert, Normal Mood/Affect, Motor Weakness Skin: Warm/Dry, Jaundice Results/Procedures Lab Laboratory Tests 05/26/23 05:28 Patient resulted labs reviewed. Imaging: Reviewed Imaging Report Assessment/Plan Assessment and Plan Assess & Plan/Chief Complaint Likely metastatic pancreatic cancer to the liver Hyponatremia Elevated LFTs Stop IV fluids Pain regimen PT/OT Radiology planning for biopsy tomorrow INR 1.9, giving Vitamin K today, recheck tomorrow morning, may need FFP Palliative care consulted for likely stage IV pancreatic cancer Anemia Leukocytosis Likely reactive leukocytosis Not septic UA not indicative of UTI Urine culture with bacteruria Antiiotics not indicated HTN Hold home meds for hypotension Avoid IV fluids unless symptomatic Crohn's Malnutrition Ensure DVT ppx: SCDs/ambulation Diagnosis/Problems Diagnosis/Problems (1) Abdominal pain Status: Acute Qualifiers: Abdominal location: epigastric Qualified Codes: R10.13 - Epigastric pain (2) Pancreatic mass Status: Acute (3) Liver masses Status: Acute (4) Elevated LFTs Status: Acute (5) Anemia Status: Acute (6) Leukocytosis Status: Acute (7) Bacteriuria Status: Acute (8) Low BMI Status: Acute LUPE CRUZ MD May 26, 2023 16:22
[2023-05-26 20:14] VITALS: BP 112/74
[2023-05-27] VITALS (10 sets, daily range): BP systolic 86–115; BP diastolic 54–77
[2023-05-27 06:11] LABS: HEMATOCRIT 27 % (35-52); HEMOGLOBIN 9.2 g/dL (11.5-16.0); MEAN CORPUSCULAR HEMOGLOBIN 30 pg (25-34); MEAN CORPUSCULAR HGB CONC 35 g/dL (32-36); MEAN CORPUSCULAR VOLUME 86 fL (80-99); MEAN PLATELET VOLUME 10.4 fL (9.0-12.2); PLATELET COUNT 154 10^3/uL (130-400); WHITE BLOOD COUNT 19.1 10^3/uL (4.3-11.0)
[2023-05-27 06:20] LABS: INR 1.3 (0.8-1.4); PROTHROMBIN TIME PATIENT 16.2 SEC (12.2-14.7)
[2023-05-27 06:22] LABS: POTASSIUM 4.7 MMOL/L (3.6-5.0)
[2023-05-27 06:24] LABS: CALCIUM 7.8 MG/DL (8.5-10.1)
[2023-05-27 06:28] LABS: CREATININE SERUM 0.53 MG/DL (0.60-1.30)
[2023-05-27] MEDS: fentaNYL INJECTION 100 MCG/2 ML VIAL IVP PRN ×2 (08:32→13:01)
--- NOTE | 2023-05-27 09:11 | Physical Therapy Progress Note ---
Therapy Progress Note Patient up in shower with daughter assist. PT will resume tomorrow as needed. ZACK LAMB PT May 27, 2023 09:11
--- NOTE | 2023-05-27 10:22 | Occ Therapy Progress Note ---
Therapy Progress Note Patient in [place], paul for biopsy, OT will attempt next available opportunity HILLARY QUISPE OT May 27, 2023 10:22
--- NOTE | 2023-05-27 12:46 | Progress Note - Hospitalist ---
Subjective HPI/CC On Admission Date Seen by Provider: May 27, 2023 Time Seen by Provider: 09:45 Patient is a 67-year-old female with past medical history of hypertension and Crohn's disease who presented to the emergency department due to confusion, and abdominal pain. She reports she has had abdominal pain across the top of her abdomen for the past few weeks. She has also felt very bloated. She was seen by Dr. Ramos and had an abdominal ultrasound done on May 13 and then had a subsequent abdominal CT on the . Per the ER she was unaware of the results of these. Unfortunately these did show the development of a pancreatic tail mass and innumerable liver lesions concerning for metastatic disease. She was also found to be clinically quite dehydrated had an elevated total bili of 6.4 and is hyponatremic. Daughter reports she has hardly been able to walk due to her weakness. Plan is to admit for IV fluids and if able will get CT guided biopsy in the hospital. Subjective/Events-last exam She is still having some pain. She is thirsty. She feels a little better after a shower this morning. Objective Exam Vital Signs Vital Signs Date Time Temp Pulse Resp B/P (MAP) Pulse Ox O2 Delivery O2 Flow Rate FiO2 05/27/23 08:00 Room Air 05/27/23 07:30 37.0 79 16 92/54 (67) 96 Capillary Refill : Less Than 3 Seconds General Appearance: No Apparent Distress, Thin Respiratory: Lungs Clear, No Respiratory Distress Cardiovascular: Regular Rate, Rhythm, No Murmur Gastrointestinal: Soft, Distended, Tenderness Extremity: Normal Inspection, No Pedal Edema Neurologic/Psychiatric: Alert, Motor Weakness Skin: Jaundice Results/Procedures Lab Laboratory Tests 05/27/23 05:12 Patient resulted labs reviewed. Imaging: Reviewed Imaging Report Assessment/Plan Assessment and Plan Assess & Plan/Chief Complaint Likely metastatic pancreatic cancer to the liver Pancreatic and liver masses Hyponatremia Elevated LFTs Pain regimen PT/OT Radiology planning for biopsy this afternoon INR improved with Vitamin K Palliative care following Anemia Leukocytosis Asymptomatic bacteriuria Likely reactive leukocytosis Not septic UA not indicative of UTI, rare WBC and negative for bacteria Urine culture with Strep agalactiae Antiiotics not indicated HTN Hold home meds for hypotension Avoid IV fluids unless symptomatic Crohn's Malnutrition Ensure DVT ppx: SCDs/ambulation Diagnosis/Problems Diagnosis/Problems (1) Abdominal pain Status: Acute Qualifiers: Abdominal location: epigastric Qualified Codes: R10.13 - Epigastric pain (2) Pancreatic mass Status: Acute (3) Liver masses Status: Acute (4) Elevated LFTs Status: Acute (5) Anemia Status: Acute (6) Leukocytosis Status: Acute (7) Bacteriuria Status: Acute (8) Low BMI Status: Acute LUPE CRUZ MD May 27, 2023 12:46
[2023-05-27] MEDS ORDERED: NS IV 1000 ML 1,000 ML IV STA (13:37)
[2023-05-27] MEDS ORDERED: LIDOCAINE 1% INJ 10 ML VIAL INJ ONE (13:45)
[2023-05-27] MEDS ORDERED: MIDAZOLAM INJ 2 MG/2 ML VIAL IVP ONE (13:45)
[2023-05-27] MEDS ORDERED: fentaNYL INJECTION 100 MCG/2 ML VIAL IVP ONE (13:45)
--- NOTE | 2023-05-27 16:30 | Diagnostic Imaging Report ---
INDICATION: Liver masses. Patient presents for CT-guided biopsy. TECHNIQUE: All CT scans use one or more of the following dose optimizing techniques: automated exposure control, MA and/or KvP adjustment based on patient size and exam type or iterative reconstruction. DETAILS OF THE PROCEDURE: The patient was brought to the CT suite and placed on the table in the supine position. Axial imaging through the abdomen was performed to evaluate for an appropriate entry site. The anterior abdomen was then prepped and draped in the usual sterile fashion. A small amount of 1% lidocaine was utilized for local anesthesia. The procedure was performed utilizing conscious sedation with Radiology nursing and constant patient monitoring. The patient was given a total of 1 mg of Versed intravenously and 50 mg of fentanyl intravenously. The total procedure time was 9 minutes. An 18-gauge coaxial Temno needle was advanced and placed with its tip along the margin of the low-attenuation mass in the left lobe of the liver. Four core biopsies were obtained. The needle was removed and hemostasis was obtained using manual compression. The patient tolerated the procedure well and left the Department in stable condition. IMPRESSION: Successful CT-guided biopsy of a low-attenuation solid mass in the left lobe of the liver utilizing conscious sedation. Pathology results are currently pending. Dictated by: Dictated on workstation # [id number]
--- NOTE | 2023-05-27 16:39 | Pre-Op Note & Conscious Sedat ---
Pre-Operative Progress Note Date of Available H&P: May 27, 2023 Date H&P Reviewed: May 27, 2023 Time H&P Reviewed: 12:00 Pre-Op Diagnosis: liver mass Moderate Sedation PreProcedure Time 12:00 ASA Score 2 Airway Lungs Heart ASA score ASA 1: a normal healthy patient ASA 2: a patient with a mild systemic disease (mid diabetes, controlled hypertension, obesity ASA 3: a patient with a severe systemic disease that limits activity (angina, COPD, prior Myocardial infarction) ASA 4: a patient with an incapacitating disease that is a constant threat to life (CHF, renal failure) ASA 5: a moribund patient not expected to survive 24 hrs. (ruptured aneurysm) ASA 6: a declared brain- patient whose organs are being harvested. For emergent operations, add the letter E after the classification Mallampati Classification Grade 2 Sedation Plan Analgesia, Amnesia, Plan communicated to team members, Discussed options with patient/fam, Discussed risks with patient/fam The patient is an appropriate candidate to undergo the planned procedure, sedation, and anesthesia. The patient immediately re-assessed prior to indication. JASPER LY MD May 27, 2023 16:39
[2023-05-27] MEDS: HYDROcodone/ACETAMINOPHEN 5 MG/325 MG TABLET PO PRN (19:52)
[2023-05-28] VITALS (7 sets, daily range): BP systolic 89–125; BP diastolic 49–71
[2023-05-28 05:44] LABS: HEMATOCRIT 26 % (35-52); HEMOGLOBIN 8.8 g/dL (11.5-16.0); MEAN CORPUSCULAR HEMOGLOBIN 30 pg (25-34); MEAN CORPUSCULAR HGB CONC 34 g/dL (32-36); MEAN CORPUSCULAR VOLUME 86 fL (80-99); PLATELET COUNT 133 10^3/uL (130-400); WHITE BLOOD COUNT 19.9 10^3/uL (4.3-11.0)
[2023-05-28 06:32] LABS: CALCIUM 7.6 MG/DL (8.5-10.1); CREATININE SERUM 0.56 MG/DL (0.60-1.30); POTASSIUM 4.8 MMOL/L (3.6-5.0)
[2023-05-28 07:52] LABS: ALBUMIN 2.1 GM/DL (3.2-4.5)
[2023-05-28 07:55] LABS: TOTAL PROTEIN 4.5 GM/DL (6.4-8.2)
[2023-05-28 07:57] LABS: BILIRUBIN,TOTAL 7.5 MG/DL (0.1-1.0)
[2023-05-28 08:00] LABS: BILIRUBIN,INDIRECT 1.5 MG/DL
[2023-05-28] MEDS: fentaNYL INJECTION 100 MCG/2 ML VIAL IVP PRN ×3 (08:27→17:40)
[2023-05-28] MEDS: HYDROcodone/ACETAMINOPHEN 5 MG/325 MG TABLET PO PRN (10:06)
--- NOTE | 2023-05-28 11:15 | Occupational Ther Daily Note ---
OT Current Status-Daily Note Subjective Patient resting n bed, initially declined PT moments ago and has now decided she would like to have therapy. OT provided ambulation in hallway and patient discussed plans for the near future. Mental Status/Objective Patient Orientation: Person, Place, Time, Situation Slurred speech ADL-Treatment Ambulation upon returning to room patient request bathroom privileges w/ FWW Therapy Code Descriptions/Definitions Functional [place]entry Measure: 0=Not Assessed/NA 4=Minimal Assistance 1=Total Assistance 5=Supervision or Setup 2=Maximal Assistance 6=Modified [place] 3=Moderate Assistance 7=Complete IndependenceSCALE: Activities may be completed with or without assistive devices. 6-Guxrouahid-uocthrb completes the activity by him/herself with no assistance from a helper. 5-Set-up or Clean-up Assistance-helper sets up or cleans up; patient completes activity. [place] assists only prior to or following the activity. 4-Supervision or Touching Assistance-helper provides verbal cues and/or touching/steadying and/or contact guard assistance as patient completes activity. Assistance may be provided throughout the activity or intermittently. 3-Partial/Moderate Assistance-helper does LESS THAN HALF the effort. [place] lifts, holds or supports trunk or limbs, but provides less than half the effort. 2-Substantial/Maximal Assistance-helper does MORE THAN HALF the effort. [place] lifts or holds trunk or limbs and provides more than half the effort. 0-Ehwgkgbbw-hfdyad does ALL the effort. Patient does none of the effort to complete the activity. Or, the assistance of 2 or more helpers is required for the patient to complete the activity. If activity was not attempted, code reason: 7-Patient Refused. 9-Not Applicable-not attempted and the patient did not perform the activity before the current illness, exacerbation or injury. 10-Not Attempted due to Environmental Limitations-(lack of equipment, weather restraints, etc.). 88-Not Attempted due to Medical Conditions or Safety Concerns. Oral Hygiene (QC): 5 (standing at sink, following tioleting and hand hygiene) Lower Body Dressing (QC): 7 (no under garments) On/Off Footwear: 3 (new from family) Toileting Hygiene (QC): 5 Toilet Transfer (QC): 5 Education OT Patient Education: Correct positioning, Modified ADL techniques, Progress toward Goal/Update tx plan, Purpose of tx/functional activities, Reviewed precautions, Rehab process, Safety issues, Transfer techniques, Use of adapted equipment Teaching Recipient: Patient Teaching Methods: Demonstration Response to Teaching: Verbalize Understanding, Reinforcement Needed OT Intelligence Operations Goals Long-Term Goals Time Frame: Jun 02, 2023 Eating (QC): 6 Oral Hygiene (QC): 6 Toileting Hygiene (QC): 5 Shower/Bathe Self (QC): 4 Upper Body Dressing (QC): 5 Lower Body Dressing (QC): 5 On/Off Footwear (QC): 5 1=Demonstrate adherence to instructed precautions during ADL tasks. 2=Patient will verbalize/demonstrate understanding of assistive devices/modifications for ADL. 3=Patient will improve strength/tolerance for activity to enable patient to perform ADL's. OT Education/Plan Problem List/Assessment Assessment: Decreased Activ Tolerance, Decreased UE Strength, Impaired Self- Care Skills Discharge Recommendations Plan/Recommendations: Continue POC Treatment Plan/Plan of Care Treatment,Training & Education: Yes Patient would benefit from OT for education, treatment and training to promote independence in ADL's, mobility, safety and/or upper extremity function for ADL's. Plan of Care: ADL Retraining, Caregiver Training, Cognitive Retraining, Concurrent Therapy, Functional Mobility, Group Exercise/Act as Ind, UE Funct Exercise/Act Treatment Duration: Jun 02, 2023 Frequency: 3 times per week (3-5 times per week) Estimated Hrs Per Day: .25 hour per day Agreement: Yes Rehab Potential: Guarded Time Start Time: 10:30 Stop Time: 10:46 DATE: May 28, 2023 Total Time Billed (hr/min): 16 Billed Treatment Time ADL 16 min HILLARY QUISPE OT May 28, 2023 11:15
--- NOTE | 2023-05-28 15:33 | Physical Therapy Daily Note ---
PT Daily Note-Current Subjective Patient right sidelying in bed upon PT arrival, agreeable to treatment. Patient rates pain at 7/10 in abdomen. Pain Section J - Health Conditions 1. Rarely or not at all 2. Occasionally 3. Frequently 4. Almost constantly 8. Unable to answer Pain Effect on Sleep: 2 Pain Interference with Therapy: 3 Pain Interference w/Day-to-Day: 3 Transfers SCALE: Activities may be completed with or without assistive devices. 0-Xmfsnivykj-koyvlkp completes the activity by him/herself with no assistance from a helper. 5-Set-up or Clean-up Assistance-helper sets up or cleans up; patient completes activity. [place] assists only prior to or following the activity. 4-Supervision or Touching Assistance-helper provides verbal cues and/or touching/steadying and/or contact guard assistance as patient completes activity. Assistance may be provided throughout the activity or intermittently. 3-Partial/Moderate Assistance-helper does LESS THAN HALF the effort. [place] lifts, holds or supports trunk or limbs, but provides less than half the effort. 2-Substantial/Maximal Assistance-helper does MORE THAN HALF the effort. [place] lifts or holds trunk or limbs and provides more than half the effort. 2-[place]-jfccsr does ALL the effort. Patient does none of the effort to complete the activity. Or, the assistance of 2 or more helpers is required for the patient to complete the activity. If activity was not attempted, code reason: 7-Patient Refused. 9-Not Applicable-not attempted and the patient did not perform the activity before the current illness, exacerbation or injury. 10-Not Attempted due to Environmental Limitations-(lack of equipment, weather restraints, etc.). 88-Not Attempted due to Medical Conditions or Safety Concerns. Roll Left & Right (QC): 3 Sit to Lying (QC): 3 Lying to Sitting/Side of Bed(Q: 3 Sit to Stand (QC): 3 Chair/Sqy-hs-Ylwis Xfer(QC): 4 Weight Bearing Right Lower Extremity: Right Full Weight Bearing Left Lower Extremity: Left Full Weight Bearing Gait Training Does the Patient Walk?: Yes Distance: 250' Walk 10 feet (QC): 4 Walk 50 ft with 2 Turns(QC): 4 Walk 150 ft (QC): 4 Gait Persons Needed: 1 Gait Assistive Device: FWW Assessment Current Status: Fair Progress Patient tolerated treatment fair. Patient performs all bed mobility with Min a and all transfers with SBA. Patient ambulates 250' with FWW with SBA and verbal cues for safety, progression, posture and conservation of energy. Patient in bathroom post treatment with all needs met, call light in reach and nursing notified. PT Project Coach Goals Project Coach Goals PT Senior Care Goals Time Frame: Jun 07, 2023 Roll Left & Right (QC): 6 Sit to Lying (QC): 6 Lying-Sitting on Side/Bed(QC): 6 Sit to Stand (QC): 6 Chair/Fcw-sw-Oxfow Xfer(QC): 6 Toilet Transfer (QC): 6 Walk 10 feet (QC): 4 Walk 50ft with 2 Turns (QC): 4 Walk 150 ft (QC): 4 PT Plan Treatment/Plan Treatment Plan: Continue Plan of Care Treatment Plan: Bed Mobility, Education, Functional Activity Hermes, Functional Strength, Gait, Safety, Therapeutic Exercise, Transfers Treatment Duration: Jun 07, 2023 Frequency: 6 times per week Estimated Hrs Per Day: .25 hour per day Patient and/or Family Agrees t: Yes Safety Risks/Education Patient Education: Gait Training, Transfer Techniques Teaching Recipient: Patient Teaching Methods: Demonstration, Discussion Response to Teaching: Verbalize Understanding, Return Demonstration Time Time In: 1352 Time Out: 1402 DATE: May 28, 2023 Total Billed Treatment Time: 10 Total Billed Treatment Visit, REED CROSS PT May 28, 2023 15:33
--- NOTE | 2023-05-28 16:47 | Progress Note - Hospitalist ---
Subjective HPI/CC On Admission Date Seen by Provider: May 28, 2023 Time Seen by Provider: 09:30 Patient is a 67-year-old female with past medical history of hypertension and Crohn's disease who presented to the emergency department due to confusion, and abdominal pain. She reports she has had abdominal pain across the top of her abdomen for the past few weeks. She has also felt very bloated. She was seen by Dr. Ramos and had an abdominal ultrasound done on May 13 and then had a subsequent abdominal CT on the . Per the ER she was unaware of the results of these. Unfortunately these did show the development of a pancreatic tail mass and innumerable liver lesions concerning for metastatic disease. She was also found to be clinically quite dehydrated had an elevated total bili of 6.4 and is hyponatremic. Daughter reports she has hardly been able to walk due to her weakness. Plan is to admit for IV fluids and if able will get CT guided biopsy in the hospital. Subjective/Events-last exam She is feeling ok. She is still having some abdominal pain. She has not had any pain associated with the biopsy. She denies nausea and vomiting. Her appetite remains poor. She has been up and moving a bit. Objective Exam Vital Signs Vital Signs Date Time Temp Pulse Resp B/P (MAP) Pulse Ox O2 Delivery O2 Flow Rate FiO2 05/28/23 15:59 37.1 91 14 120/62 (81) 97 Room Air 05/28/23 03:17 0.00 0.00 Capillary Refill : Less Than 3 Seconds General Appearance: No Apparent Distress, Chronically ill, Thin Respiratory: Lungs Clear, No Respiratory Distress Cardiovascular: Regular Rate, Rhythm, No Edema Gastrointestinal: Normal Bowel Sounds, Soft, Distended, Tenderness Extremity: Non Tender; No Inflammation Neurologic/Psychiatric: Alert, Normal Mood/Affect Skin: Warm/Dry, Jaundice Results/Procedures Lab Laboratory Tests 05/28/23 05:33 Patient resulted labs reviewed. Imaging: Reviewed Imaging Report Assessment/Plan Assessment and Plan Assess & Plan/Chief Complaint Likely metastatic pancreatic cancer to the liver Pancreatic and liver masses Hyponatremia Elevated LFTs Pain regimen PT/OT s/p biopsy 05/27, awaiting results Palliative care following Anemia Leukocytosis Asymptomatic bacteriuria Likely reactive leukocytosis Not septic UA not indicative of UTI, rare WBC and negative for bacteria Urine culture with Strep agalactiae Antiiotics not indicated HTN Hold home meds for hypotension Avoid IV fluids unless symptomatic Crohn's Malnutrition Ensure Add Remeron DVT ppx: SCDs/ambulation Diagnosis/Problems Diagnosis/Problems (1) Abdominal pain Status: Acute Qualifiers: Abdominal location: epigastric Qualified Codes: R10.13 - Epigastric pain (2) Pancreatic mass Status: Acute (3) Liver masses Status: Acute (4) Elevated LFTs Status: Acute (5) Anemia Status: Acute (6) Leukocytosis Status: Acute (7) Bacteriuria Status: Acute (8) Low BMI Status: Acute LUPE CRUZ MD May 28, 2023 16:47
[2023-05-28] MEDS: MIRTAZAPINE 15 MG TABLET PO SCH (21:06)
[2023-05-29 03:55] VITALS: BP 137/77
[2023-05-29] MEDS: HYDROcodone/ACETAMINOPHEN 5 MG/325 MG TABLET PO PRN ×3 (04:01→12:24)
[2023-05-29 05:56] LABS: HEMOGLOBIN 8.8 g/dL (11.5-16.0); MEAN PLATELET VOLUME 9.7 fL (9.0-12.2); WHITE BLOOD COUNT 21.6 10^3/uL (4.3-11.0)
[2023-05-29 06:10] LABS: CALCIUM 7.8 MG/DL (8.5-10.1); CREATININE SERUM 0.56 MG/DL (0.60-1.30); POTASSIUM 4.9 MMOL/L (3.6-5.0)
[2023-05-29 07:21] VITALS: BP 107/67
--- NOTE | 2023-05-29 11:33 | Occupational Ther Daily Note ---
OT Current Status-Daily Note Subjective On arrival patient requesting to use bathroom. Pain Numeric Pain Scale: 0-No Pain Comment: Weakness Mental Status/Objective Patient Orientation: Person, Place, Time, Situation Attachments: Tom Catheter ADL-Treatment Ambulation to bathroom w/ FWW, tom intact, no UB garmetns to manage, unsuccessful BM attempt, stood w/ FWW and washed hands at sink. Forgetful of FWW when leaving bathroom, Warm blanket provided following ambulating in halls and resting in recliner Therapy Code Descriptions/Definitions Functional Stevenson Measure: 0=Not Assessed/NA 4=Minimal Assistance 1=Total Assistance 5=Supervision or Setup 2=Maximal Assistance 6=Modified Stevenson 3=Moderate Assistance 7=Complete IndependenceSCALE: Activities may be completed with or without assistive devices. 0-Wuspmxtpgj-xkysfqh completes the activity by him/herself with no assistance from a helper. 5-Set-up or Clean-up Assistance-helper sets up or cleans up; patient completes activity. [place] assists only prior to or following the activity. 4-Supervision or Touching Assistance-helper provides verbal cues and/or touching/steadying and/or contact guard assistance as patient completes activity. Assistance may be provided throughout the activity or intermittently. 3-Partial/Moderate Assistance-helper does LESS THAN HALF the effort. [place] lifts, holds or supports trunk or limbs, but provides less than half the effort. 2-Substantial/Maximal Assistance-helper does MORE THAN HALF the effort. [place] lifts or holds trunk or limbs and provides more than half the effort. 9-Ndqhuinrm-olxvmz does ALL the effort. Patient does none of the effort to complete the activity. Or, the assistance of 2 or more helpers is required for the patient to complete the activity. If activity was not attempted, code reason: 7-Patient Refused. 9-Not Applicable-not attempted and the patient did not perform the activity before the current illness, exacerbation or injury. 10-Not Attempted due to Environmental Limitations-(lack of equipment, weather restraints, etc.). 88-Not Attempted due to Medical Conditions or Safety Concerns. On/Off Footwear: 7 (already on ) Toileting Hygiene (QC): 4 Toilet Transfer (QC): 4 Education OT Patient Education: Correct positioning, Exercise program, Instructions to caregiver (neice in room), Modified ADL techniques, Progress toward Goal/Update tx plan, Purpose of tx/functional activities, Reviewed precautions, Rehab process, Safety issues, Transfer techniques, Use of adapted equipment Teaching Recipient: Patient, Family Response to Teaching: Verbalize Understanding, Reinforcement Needed OT Intermediate Goals Intermediate Goals Time Frame: Jun 02, 2023 Eating (QC): 6 Oral Hygiene (QC): 6 Toileting Hygiene (QC): 5 Shower/Bathe Self (QC): 4 Upper Body Dressing (QC): 5 Lower Body Dressing (QC): 5 On/Off Footwear (QC): 5 1=Demonstrate adherence to instructed precautions during ADL tasks. 2=Patient will verbalize/demonstrate understanding of assistive devices/modifications for ADL. 3=Patient will improve strength/tolerance for activity to enable patient to perform ADL's. OT Education/Plan Problem List/Assessment Assessment: Decreased Activ Tolerance, Decreased Safety Aware, Decreased UE Strength, Impaired Funct Balance, Impaired Self-Care Skills Discharge Recommendations Plan/Recommendations: Continue POC Therapy Discharge Recommendati: Post Acute OT Treatment Plan/Plan of Care Treatment,Training & Education: Yes Patient would benefit from OT for education, treatment and training to promote independence in ADL's, mobility, safety and/or upper extremity function for ADL's. Plan of Care: ADL Retraining, Caregiver Training, Cognitive Retraining, Concurrent Therapy, Functional Mobility, Group Exercise/Act as Ind, UE Funct Exercise/Act Treatment Duration: Jun 02, 2023 Frequency: 3 times per week (3-5 times per week) Estimated Hrs Per Day: .25 hour per day Agreement: Yes Rehab Potential: Guarded Time Start Time: 10:38 Stop Time: 10:56 DATE: May 29, 2023 Total Time Billed (hr/min): 18 Billed Treatment Time ADL 18 min HILLARY QUISPE OT May 29, 2023 11:33
--- NOTE | 2023-05-29 11:38 | Physical Therapy Daily Note ---
PT Daily Note-Current Subjective Patient requests toilet use. Agrees to therapy. Pain Section J - Health Conditions 1. Rarely or not at all 2. Occasionally 3. Frequently 4. Almost constantly 8. Unable to answer Pain Effect on Sleep: 1 Pain Interference with Therapy: 1 Pain Interference w/Day-to-Day: 1 Mental Status Attachments: Dunn Catheter Transfers SCALE: Activities may be completed with or without assistive devices. 8-Wpdzcbpces-rpfzdwf completes the activity by him/herself with no assistance from a helper. 5-Set-up or Clean-up Assistance-helper sets up or cleans up; patient completes activity. [place] assists only prior to or following the activity. 4-Supervision or Touching Assistance-helper provides verbal cues and/or touching/steadying and/or contact guard assistance as patient completes activity. Assistance may be provided throughout the activity or intermittently. 3-Partial/Moderate Assistance-helper does LESS THAN HALF the effort. [place] lifts, holds or supports trunk or limbs, but provides less than half the effort. 2-Substantial/Maximal Assistance-helper does MORE THAN HALF the effort. [place] lifts or holds trunk or limbs and provides more than half the effort. 6-Fsncejlgd-oqncgs does ALL the effort. Patient does none of the effort to complete the activity. Or, the assistance of 2 or more helpers is required for the patient to complete the activity. If activity was not attempted, code reason: 7-Patient Refused. 9-Not Applicable-not attempted and the patient did not perform the activity before the current illness, exacerbation or injury. 10-Not Attempted due to Environmental Limitations-(lack of equipment, weather restraints, etc.). 88-Not Attempted due to Medical Conditions or Safety Concerns. Lying to Sitting/Side of Bed(Q: 4 Sit to Stand (QC): 4 Chair/Vgi-tl-Dsroh Xfer(QC): 4 Toilet Transfer (QC): 4 Weight Bearing Right Lower Extremity: Right Full Weight Bearing Left Lower Extremity: Left Full Weight Bearing Gait Training Distance: 350' Walk 10 feet (QC): 4 Walk 50 ft with 2 Turns(QC): 4 Walk 150 ft (QC): 4 Gait Assistive Device: FWW slow, steady gait sequence Assessment Patient tolerated treatment well and is up in recliner with needs met. Continue to increase activity as tolerated by patient. PT Fpc Goals Fpc Goals PT Lapping Machine Operator Goals Time Frame: Jun 07, 2023 Roll Left & Right (QC): 6 Sit to Lying (QC): 6 Lying-Sitting on Side/Bed(QC): 6 Sit to Stand (QC): 6 Chair/Txp-sh-Dhwov Xfer(QC): 6 Toilet Transfer (QC): 6 Walk 10 feet (QC): 4 Walk 50ft with 2 Turns (QC): 4 Walk 150 ft (QC): 4 PT Plan Treatment/Plan Treatment Plan: Continue Plan of Care Treatment Plan: Bed Mobility, Education, Functional Activity Hermes, Functional Strength, Gait, Safety, Therapeutic Exercise, Transfers Treatment Duration: Jun 07, 2023 Frequency: 6 times per week Estimated Hrs Per Day: .25 hour per day Patient and/or Family Agrees t: Yes Time Time In: 1038 Time Out: 1055 DATE: May 29, 2023 Total Billed Treatment Time: 17 Total Billed Treatment 1 venus FA 17 ZACK LAMB PT May 29, 2023 11:38
[2023-05-29 12:31] VITALS: BP 110/63
[2023-05-29 15:38] VITALS: BP 118/67
--- NOTE | 2023-05-29 17:09 | Progress Note - Hospitalist ---
Subjective HPI/CC On Admission Date Seen by Provider: May 29, 2023 Time Seen by Provider: 10:00 Patient is a 67-year-old female with past medical history of hypertension and Crohn's disease who presented to the emergency department due to confusion, and abdominal pain. She reports she has had abdominal pain across the top of her abdomen for the past few weeks. She has also felt very bloated. She was seen by Dr. Ramos and had an abdominal ultrasound done on May 13 and then had a subsequent abdominal CT on the . Per the ER she was unaware of the results of these. Unfortunately these did show the development of a pancreatic tail mass and innumerable liver lesions concerning for metastatic disease. She was also found to be clinically quite dehydrated had an elevated total bili of 6.4 and is hyponatremic. Daughter reports she has hardly been able to walk due to her weakness. Plan is to admit for IV fluids and if able will get CT guided biopsy in the hospital. Subjective/Events-last exam She is feeling better. Her pain is improved. She says she did not like the nausea medicine and it made her stomach more upset. Objective Exam Vital Signs Vital Signs Date Time Temp Pulse Resp B/P (MAP) Pulse Ox O2 Delivery O2 Flow Rate FiO2 05/29/23 15:38 36.5 76 18 118/67 (84) 97 Room Air 05/29/23 09:59 0.00 05/28/23 18:17 21 Capillary Refill : Less Than 3 Seconds General Appearance: No Apparent Distress, Chronically ill, Thin Respiratory: Lungs Clear, No Respiratory Distress Cardiovascular: Regular Rate, Rhythm, No Murmur Gastrointestinal: Normal Bowel Sounds, Soft, Distended, Tenderness Extremity: Non Tender, Pedal Edema Neurologic/Psychiatric: Alert, Normal Mood/Affect Skin: Jaundice Results/Procedures Lab Laboratory Tests 05/29/23 05:33 Patient resulted labs reviewed. Imaging: Reviewed Imaging Report Assessment/Plan Assessment and Plan Assess & Plan/Chief Complaint Likely metastatic pancreatic cancer to the liver Pancreatic and liver masses Hyponatremia Elevated LFTs Debility Pain regimen PT/OT, improving s/p biopsy 05/27, awaiting results Palliative care following Planning for discharge to [facility] tomorrow Anemia Leukocytosis Asymptomatic bacteriuria Likely reactive leukocytosis Not septic UA not indicative of UTI, rare WBC and negative for bacteria Urine culture with Strep agalactiae Antiiotics not indicated HTN Hold home meds for hypotension Avoid IV fluids unless symptomatic Crohn's Malnutrition Ensure Remeron DVT ppx: SCDs/ambulation Diagnosis/Problems Diagnosis/Problems (1) Abdominal pain Status: Acute Qualifiers: Abdominal location: epigastric Qualified Codes: R10.13 - Epigastric pain (2) Pancreatic mass Status: Acute (3) Liver masses Status: Acute (4) Elevated LFTs Status: Acute (5) Anemia Status: Acute (6) Leukocytosis Status: Acute (7) Bacteriuria Status: Acute (8) Low BMI Status: Acute LUPE CRUZ MD May 29, 2023 17:09
[2023-05-29 19:18] VITALS: BP 134/73
[2023-05-29] MEDS: MIRTAZAPINE 15 MG TABLET PO SCH (20:29)
[2023-05-30] VITALS: BP 88/56
[2023-05-30] MEDS: HYDROcodone/ACETAMINOPHEN 5 MG/325 MG TABLET PO PRN ×5 (00:07→21:41)
[2023-05-30 04:00] VITALS: BP 90/58
[2023-05-30 08:35] VITALS: BP 115/69
--- NOTE | 2023-05-30 10:21 | Physical Therapy Progress Note ---
Therapy Progress Note Patient ambulating in hallway with nursing staff. PT will attempt to see patient later today or this weekend. ZACK LAMB PT May 30, 2023 10:21
[2023-05-30 12:14] VITALS: BP 136/71
--- NOTE | 2023-05-30 13:12 | Occ Therapy Progress Note ---
Therapy Progress Note Patient ambulating in hallway with nursing staff. No new needs, Patient bathed and in clean personal gown, POC 3-5 times/week.Patient declines OT at this time HILLARY QUISPE OT May 30, 2023 13:12
[2023-05-30 15:52] VITALS: BP 91/54
--- NOTE | 2023-05-30 16:00 | Progress Note - Hospitalist ---
Subjective HPI/CC On Admission Date Seen by Provider: May 30, 2023 Time Seen by Provider: 11:00 Patient is a 67-year-old female with past medical history of hypertension and Crohn's disease who presented to the emergency department due to confusion, and abdominal pain. She reports she has had abdominal pain across the top of her abdomen for the past few weeks. She has also felt very bloated. She was seen by Dr. Ramos and had an abdominal ultrasound done on May 13 and then had a subsequent abdominal CT on the . Per the ER she was unaware of the results of these. Unfortunately these did show the development of a pancreatic tail mass and innumerable liver lesions concerning for metastatic disease. She was also found to be clinically quite dehydrated had an elevated total bili of 6.4 and is hyponatremic. Daughter reports she has hardly been able to walk due to her weakness. Plan is to admit for IV fluids and if able will get CT guided biopsy in the hospital. Subjective/Events-last exam She is feeling better. She still does not have much of an appetite. She has been walking with therapy. Objective Exam Vital Signs Vital Signs Date Time Temp Pulse Resp B/P (MAP) Pulse Ox O2 Delivery O2 Flow Rate FiO2 05/30/23 12:14 36.0 66 18 136/71 (92) 98 Room Air 05/29/23 09:59 0.00 05/28/23 18:17 21 Capillary Refill : Less Than 3 Seconds General Appearance: No Apparent Distress, Chronically ill, Thin Respiratory: Lungs Clear, No Respiratory Distress Cardiovascular: Regular Rate, Rhythm, No Murmur Gastrointestinal: Normal Bowel Sounds, Soft, Distended, Tenderness Extremity: Non Tender, Pedal Edema Neurologic/Psychiatric: Alert, Normal Mood/Affect Skin: Jaundice Results/Procedures Lab Patient resulted labs reviewed. Imaging: Reviewed Imaging Report Assessment/Plan Assessment and Plan Assess & Plan/Chief Complaint Likely metastatic pancreatic cancer to the liver Pancreatic and liver masses Hyponatremia Elevated LFTs Debility Pain regimen PT/OT, improving s/p biopsy 05/27, awaiting results Palliative care following Planning for discharge to SNF, awaiting accepting facility Anemia Leukocytosis Asymptomatic bacteriuria Likely reactive leukocytosis Not septic UA not indicative of UTI, rare WBC and negative for bacteria Urine culture with Strep agalactiae Antiiotics not indicated HTN Hold home meds for hypotension Avoid IV fluids unless symptomatic Crohn's Malnutrition Ensure Remeron DVT ppx: SCDs/ambulation Diagnosis/Problems Diagnosis/Problems (1) Abdominal pain Status: Acute Qualifiers: Abdominal location: epigastric Qualified Codes: R10.13 - Epigastric pain (2) Pancreatic mass Status: Acute (3) Liver masses Status: Acute (4) Elevated LFTs Status: Acute (5) Anemia Status: Acute (6) Leukocytosis Status: Acute (7) Bacteriuria Status: Acute (8) Low BMI Status: Acute LUPE CRUZ MD May 30, 2023 16:00
[2023-05-30 20:28] VITALS: BP 105/50
[2023-05-30] MEDS: MIRTAZAPINE 15 MG TABLET PO SCH (21:40)
[2023-05-31] VITALS (8 sets, daily range): BP systolic 80–97; BP diastolic 48–62
[2023-05-31] MEDS: HYDROcodone/ACETAMINOPHEN 5 MG/325 MG TABLET PO PRN ×2 (09:34→13:34)
--- NOTE | 2023-05-31 11:02 | Physical Therapy Daily Note ---
PT Daily Note-Current Subjective Pt is in the chair on arrival. She is agreeable to treatment. Pt notes feeling lethargic. Pain Section J - Health Conditions 1. Rarely or not at all 2. Occasionally 3. Frequently 4. Almost constantly 8. Unable to answer Pain Effect on Sleep: 1 Pain Interference with Therapy: 1 Pain Interference w/Day-to-Day: 1 Mental Status Patient Orientation: Person, Place, Time, Situation Transfers SCALE: Activities may be completed with or without assistive devices. 5-Xqxvetarff-cnsuhbd completes the activity by him/herself with no assistance from a helper. 5-Set-up or Clean-up Assistance-helper sets up or cleans up; patient completes activity. [place] assists only prior to or following the activity. 4-Supervision or Touching Assistance-helper provides verbal cues and/or touching/steadying and/or contact guard assistance as patient completes activity. Assistance may be provided throughout the activity or intermittently. 3-Partial/Moderate Assistance-helper does LESS THAN HALF the effort. [place] lifts, holds or supports trunk or limbs, but provides less than half the effort. 2-Substantial/Maximal Assistance-helper does MORE THAN HALF the effort. [place] lifts or holds trunk or limbs and provides more than half the effort. 4-Ggxgjqdbl-mwtrmt does ALL the effort. Patient does none of the effort to complete the activity. Or, the assistance of 2 or more helpers is required for the patient to complete the activity. If activity was not attempted, code reason: 7-Patient Refused. 9-Not Applicable-not attempted and the patient did not perform the activity before the current illness, exacerbation or injury. 10-Not Attempted due to Environmental Limitations-(lack of equipment, weather restraints, etc.). 88-Not Attempted due to Medical Conditions or Safety Concerns. Sit to Stand (QC): 6 Weight Bearing Right Lower Extremity: Right Full Weight Bearing Left Lower Extremity: Left Full Weight Bearing Gait Training Does the Patient Walk?: Yes Distance: 220 Walk 10 feet (QC): 6 Walk 50 ft with 2 Turns(QC): 6 Walk 150 ft (QC): 6 Gait Persons Needed: 1 Gait Assistive Device: FWW Exercises Seated Therapy Exercises: LE Protocol Seated Reps: 15 Assessment Current Status: Good Progress Pt initially indicated that she was not going to walk as far as she had in the past, but was still able to ambulate 220ft. PT Software Tools Developer Goals Fpc Goals PT Fpc Goals Time Frame: Jun 07, 2023 Roll Left & Right (QC): 6 Sit to Lying (QC): 6 Lying-Sitting on Side/Bed(QC): 6 Sit to Stand (QC): 6 Chair/Fmo-lv-Gbxun Xfer(QC): 6 Toilet Transfer (QC): 6 Walk 10 feet (QC): 4 Walk 50ft with 2 Turns (QC): 4 Walk 150 ft (QC): 4 PT Plan Treatment/Plan Treatment Plan: Continue Plan of Care Treatment Plan: Bed Mobility, Education, Functional Activity Hermes, Functional Strength, Gait, Safety, Therapeutic Exercise, Transfers Treatment Duration: Jun 07, 2023 Frequency: 6 times per week Estimated Hrs Per Day: .25 hour per day Patient and/or Family Agrees t: Yes Time Time In: 911 Time Out: 926 DATE: May 31, 2023 Total Billed Treatment Time: 15 Total Billed Treatment 1, gt 15 JEET GASPAR PT May 31, 2023 11:02
--- NOTE | 2023-05-31 18:02 | Progress Note - Hospitalist ---
Subjective HPI/CC On Admission Date Seen by Provider: May 31, 2023 Time Seen by Provider: 12:15 Patient is a 67-year-old female with past medical history of hypertension and Crohn's disease who presented to the emergency department due to confusion, and abdominal pain. She reports she has had abdominal pain across the top of her abdomen for the past few weeks. She has also felt very bloated. She was seen by Dr. Ramos and had an abdominal ultrasound done on May 13 and then had a subsequent abdominal CT on the . Per the ER she was unaware of the results of these. Unfortunately these did show the development of a pancreatic tail mass and innumerable liver lesions concerning for metastatic disease. She was also found to be clinically quite dehydrated had an elevated total bili of 6.4 and is hyponatremic. Daughter reports she has hardly been able to walk due to her weakness. Plan is to admit for IV fluids and if able will get CT guided biopsy in the hospital. Subjective/Events-last exam She is feeling about the same. She was not able to walk as far with therapy today. She has lots of family at bedside. We discussed the results of her biopsy. Objective Exam Vital Signs Vital Signs Date Time Temp Pulse Resp B/P (MAP) Pulse Ox O2 Delivery O2 Flow Rate FiO2 05/31/23 16:15 37.0 96 18 88/56 (67) 98 Room Air 0.00 0.00 05/28/23 18:17 21 Capillary Refill : Less Than 3 Seconds General Appearance: No Apparent Distress, Chronically ill, Thin Respiratory: Lungs Clear, No Respiratory Distress Cardiovascular: Regular Rate, Rhythm, No Murmur Gastrointestinal: Normal Bowel Sounds, Soft Extremity: Normal Inspection, No Pedal Edema Neurologic/Psychiatric: Alert, Normal Mood/Affect Skin: Warm/Dry, Jaundice Results/Procedures Lab Patient resulted labs reviewed. 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 Ramos after weekend Consult oncology if available prior to discharge, no coverage over weekend Anemia Leukocytosis Asymptomatic bacteriuria Likely reactive leukocytosis Not septic UA not indicative of UTI, rare WBC and negative for bacteria Urine culture with Strep agalactiae Antiiotics not indicated HTN Hold home meds for hypotension Avoid IV fluids unless symptomatic Crohn's Malnutrition Ensure Remeron DVT ppx: SCDs/ambulation Diagnosis/Problems Diagnosis/Problems (1) Metastatic adenocarcinoma to liver with unknown primary site Status: Acute (2) Metastatic adenocarcinoma to pancreas with unknown primary site Status: Acute (3) Pain of metastatic malignancy Status: Acute (4) Abdominal pain Status: Acute Qualifiers: Abdominal location: epigastric Qualified Codes: R10.13 - Epigastric pain (5) Pancreatic mass Status: Acute (6) Liver masses Status: Acute (7) Elevated LFTs Status: Acute (8) Anemia Status: Acute (9) Leukocytosis Status: Acute (10) Bacteriuria Status: Acute (11) Low BMI Status: Acute LUPE CRUZ MD May 31, 2023 18:02
[2023-05-31] MEDS: OXYCODONE 10 MG PO SCH (19:50)
[2023-05-31] MEDS: MIRTAZAPINE 15 MG TABLET PO SCH (19:50)
[2023-06-01 03:39] VITALS: BP 89/62
[2023-06-01] MEDS: OXYCODONE 10 MG PO SCH ×2 (08:32→21:21)
[2023-06-01 08:33] VITALS: BP 84/54
[2023-06-01 08:35] VITALS: BP 84/54
[2023-06-01 11:25] VITALS: BP 82/54
--- NOTE | 2023-06-01 15:46 | Progress Note - Hospitalist ---
Subjective HPI/CC On Admission Date Seen by Provider: Jun 01, 2023 Time Seen by Provider: 11:45 Patient is a 67-year-old female with past medical history of hypertension and Crohn's disease who presented to the emergency department due to confusion, and abdominal pain. She reports she has had abdominal pain across the top of her abdomen for the past few weeks. She has also felt very bloated. She was seen by Dr. Ramos and had an abdominal ultrasound done on May 13 and then had a subsequent abdominal CT on the . Per the ER she was unaware of the results of these. Unfortunately these did show the development of a pancreatic tail mass and innumerable liver lesions concerning for metastatic disease. She was also found to be clinically quite dehydrated had an elevated total bili of 6.4 and is hyponatremic. Daughter reports she has hardly been able to walk due to her weakness. Plan is to admit for IV fluids and if able will get CT guided biopsy in the hospital. Subjective/Events-last exam She is sitting in bed. Her daughter is at the bedside. She is feeling a bit better. She thinks the pain medicine is helping. Her appetite is still poor. Objective Exam Vital Signs Vital Signs Date Time Temp Pulse Resp B/P (MAP) Pulse Ox O2 Delivery O2 Flow Rate FiO2 06/01/23 11:25 36.7 80 14 82/54 (63) 99 Room Air 06/01/23 08:00 0.00 05/28/23 18:17 21 Capillary Refill : Less Than 3 Seconds General Appearance: No Apparent Distress, WD/WN Respiratory: Lungs Clear, No Respiratory Distress Cardiovascular: Regular Rate, Rhythm, No Murmur Gastrointestinal: Soft, Distended, Tenderness Extremity: Normal Inspection, Pedal Edema Neurologic/Psychiatric: Alert, Normal Mood/Affect Skin: Warm/Dry, Jaundice Results/Procedures Lab Patient resulted labs reviewed. 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 Ramos after weekend Consult oncology if available prior to discharge, no coverage over weekend Anemia Leukocytosis Asymptomatic bacteriuria Likely reactive leukocytosis Not septic UA not indicative of UTI, rare WBC and negative for bacteria Urine culture with Strep agalactiae Antiiotics not indicated HTN Hold home meds for hypotension Avoid IV fluids unless symptomatic Crohn's Malnutrition Ensure Remeron DVT ppx: SCDs/ambulation Diagnosis/Problems Diagnosis/Problems (1) Metastatic adenocarcinoma to liver with unknown primary site Status: Acute (2) Metastatic adenocarcinoma to pancreas with unknown primary site Status: Acute (3) Pain of metastatic malignancy Status: Acute (4) Abdominal pain Status: Acute Qualifiers: Abdominal location: epigastric Qualified Codes: R10.13 - Epigastric pain (5) Pancreatic mass Status: Acute (6) Liver masses Status: Acute (7) Elevated LFTs Status: Acute (8) Anemia Status: Acute (9) Leukocytosis Status: Acute (10) Bacteriuria Status: Acute (11) Low BMI Status: Acute LUPE CRUZ MD Jun 01, 2023 15:46
[2023-06-01 16:05] VITALS: BP 73/47
[2023-06-01 20:09] VITALS: BP 86/58
[2023-06-01] MEDS: MIRTAZAPINE 15 MG TABLET PO SCH (21:22)
[2023-06-02 00:20] VITALS: BP 81/63
[2023-06-02 03:36] VITALS: BP 83/67
[2023-06-02 07:15] VITALS: BP 130/76
[2023-06-02] MEDS: OXYCODONE 10 MG PO SCH (09:36)
--- NOTE | 2023-06-02 10:38 | Physical Therapy Daily Note ---
PT Daily Note-Current Subjective Pt found lying in bed upon entry. Agreed to PT. Reports that she is feeling very bad today and needs to use the rest room quickly. No reports of pain but pt does appear very lethargic. Pain Section J - Health Conditions 1. Rarely or not at all 2. Occasionally 3. Frequently 4. Almost constantly 8. Unable to answer Pain Effect on Sleep: 1 Pain Interference with Therapy: 1 Pain Interference w/Day-to-Day: 1 Mental Status Patient Orientation: Person, Place Attachments: Dunn Catheter Transfers SCALE: Activities may be completed with or without assistive devices. 8-Bxvmvlvcli-[id number] completes the activity by him/herself with no assistance from a helper. 5-Set-up or Clean-up Assistance-helper sets up or cleans up; patient completes activity. [place] assists only prior to or following the activity. 4-Supervision or Touching Assistance-helper provides verbal cues and/or touching/steadying and/or contact guard assistance as patient completes activity. Assistance may be provided throughout the activity or intermittently. 3-Partial/Moderate Assistance-helper does LESS THAN HALF the effort. [place] lifts, holds or supports trunk or limbs, but provides less than half the effort. 2-Substantial/Maximal Assistance-helper does MORE THAN HALF the effort. [place] lifts or holds trunk or limbs and provides more than half the effort. 5-Xhozxvjsk-qkeimz does ALL the effort. Patient does none of the effort to complete the activity. Or, the assistance of 2 or more helpers is required for the patient to complete the activity. If activity was not attempted, code reason: 7-Patient Refused. 9-Not Applicable-not attempted and the patient did not perform the activity before the current illness, exacerbation or injury. 10-Not Attempted due to Environmental Limitations-(lack of equipment, weather restraints, etc.). 88-Not Attempted due to Medical Conditions or Safety Concerns. Sit to Lying (QC): 3 Lying to Sitting/Side of Bed(Q: 3 Sit to Stand (QC): 3 Toilet Transfer (QC): 3 Weight Bearing Right Lower Extremity: Right Full Weight Bearing Left Lower Extremity: Left Full Weight Bearing Gait Training Does the Patient Walk?: Yes Distance: 20, 20 Walk 10 feet (QC): 4 Gait Persons Needed: 1 Gait Assistive Device: FWW Assessment Current Status: Poor Progress Pt appears very lethargic today throughout treatment. Pt required MIN hand held assistance to perform lying to sitting transfer. MIN assistance to perform sit to stand transfer. After rising to standing position pt ambulated 20 feet to bathroom /c use of FWW. Required CGA for safety due to balance deficits and pt report of instability. Pt then performs toilet transfer /c MIN assist to rise from toilet. Pt ambulated an additional 20 feet back to bed. Required MIN LE lifting assistance to perform sitting to lying transfer. Pt supine in bed post- treatment /c call light in place and all needs met. Continue to progress pt per POC. PT Psychologist Industrial Organizational Goals Psychologist Industrial Organizational Goals PT Psychologist Industrial Organizational Goals Time Frame: Jun 07, 2023 Roll Left & Right (QC): 6 Sit to Lying (QC): 6 Lying-Sitting on Side/Bed(QC): 6 Sit to Stand (QC): 6 Chair/Cvd-bb-Pvcnn Xfer(QC): 6 Toilet Transfer (QC): 6 Walk 10 feet (QC): 4 Walk 50ft with 2 Turns (QC): 4 Walk 150 ft (QC): 4 PT Plan Treatment/Plan Treatment Plan: Continue Plan of Care Treatment Plan: Bed Mobility, Education, Functional Activity [place], Functional Strength, Gait, Safety, Therapeutic Exercise, Transfers Treatment Duration: Jun 07, 2023 Frequency: 6 times per week Estimated Hrs Per Day: .25 hour per day Patient and/or Family Agrees t: Yes Time Time In: 831 Time Out: 850 DATE: Jun 02, 2023 Total Billed Treatment Time: 19 Total Billed Treatment 1 visit FA x 1 SHELLEY GUZMAN CORONER FORENSIC TECHNICIAN Jun 02, 2023 10:38
--- NOTE | 2023-06-02 10:55 | Progress Note - Hospitalist ---
Subjective HPI/CC On Admission Date Seen by Provider: Jun 02, 2023 Patient is a 67-year-old female with past medical history of hypertension and Crohn's disease who presented to the emergency department due to confusion, and abdominal pain. She reports she has had abdominal pain across the top of her abdomen for the past few weeks. She has also felt very bloated. She was seen by Dr. Ramos and had an abdominal ultrasound done on May 13 and then had a subsequent abdominal CT on the . Per the ER she was unaware of the results of these. Unfortunately these did show the development of a pancreatic tail mass and innumerable liver lesions concerning for metastatic disease. She was also found to be clinically quite dehydrated had an elevated total bili of 6.4 and is hyponatremic. Daughter reports she has hardly been able to walk due to her weakness. Plan is to admit for IV fluids and if able will get CT guided biopsy in the hospital. Objective Exam Vital Signs Vital Signs Date Time Temp Pulse Resp B/P (MAP) Pulse Ox O2 Delivery O2 Flow Rate FiO2 06/02/23 08:00 98 Room Air 0.00 06/02/23 07:15 36.5 96 18 130/76 (94) 05/28/23 18:17 21 Capillary Refill : Less Than 3 Seconds General Appearance: No Apparent Distress, Chronically ill, Cachetic, Thin Respiratory: Lungs Clear Cardiovascular: Regular Rate, Rhythm Gastrointestinal: Normal Bowel Sounds, Soft Neurologic/Psychiatric: Alert, Oriented x3 Results/Procedures Lab Patient resulted labs reviewed. 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 Ramos tomorrow Consult oncology if available prior to discharge, no coverage over extended weekend Anemia Leukocytosis Asymptomatic bacteriuria Likely reactive leukocytosis- stable Not septic UA not indicative of UTI, rare WBC and negative for bacteria Urine culture with Strep agalactiae Antibiotics not indicated HTN Hold home meds for hypotension Avoid IV fluids unless symptomatic and so far has been asymptomatic Crohn's Malnutrition Ensure Remeron DVT ppx: Lovenox Diagnosis/Problems Diagnosis/Problems (1) Leukocytosis Status: Acute (2) Splenic mass (3) Pancreatic mass Status: Acute (4) Liver mass (5) Abdominal pain Status: Acute Qualifiers: Abdominal location: epigastric Qualified Codes: R10.13 - Epigastric pain (6) Generalized weakness (7) LUQ abdominal pain (8) Hyperbilirubinemia DARVIN SOLITARIO MD Jun 02, 2023 10:55
[2023-06-02] MEDS ORDERED: ENOXAPARIN 30 MG/0.3 ML SYRINGE SC SCH (12:00)
[2023-06-02 12:07] VITALS: BP 128/70
[2023-06-02] MEDS: HYDROcodone/ACETAMINOPHEN 5 MG/325 MG TABLET PO PRN (12:33)
[2023-06-02] MEDS ORDERED: fentaNYL INJECTION 100 MCG/2 ML VIAL IVP PRN (12:45)
[2023-06-02] MEDS ORDERED: HYDROcodone/ACETAMINOPHEN 5 MG/325 MG TABLET PO PRN (15:00)
--- NOTE | 2023-06-02 20:10 | Discharge Summary ---
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 Ramos tomorrow Consult oncology if available prior to discharge, no coverage over extended weekend Anemia Leukocytosis Asymptomatic bacteriuria Likely reactive leukocytosis- stable Not septic UA not indicative of UTI, rare WBC and negative for bacteria Urine culture with Strep agalactiae Antibiotics not indicated HTN Hold home meds for hypotension Avoid IV fluids unless symptomatic and so far has been asymptomatic Crohn's Malnutrition Ensure Remeron DVT ppx: Lovenox (1) Leukocytosis Status: Acute (2) Splenic mass (3) Pancreatic mass Status: Acute (4) Liver mass (5) Abdominal pain Status: Acute Qualifiers: Qualified Codes: R10.13 - Epigastric pain (6) Generalized weakness (7) LUQ abdominal pain (8) Hyperbilirubinemia DARVIN SOLITARIO MD Jun 02, 2023 20:10
[2023-06-02] MEDS ORDERED: OXYCODONE 20 MG PO SCH (21:00)
== END 2023-06-02 18:10 | disposition expired | DRG 436 ==
LOC: EDUNIT# 08:19 → ER 08:22 → 4TH 10:41
PROVIDERS: ADMIT Family Medicine; ATTEND Internal Medicine
PROC: 0FB23ZX Excision of Left Lobe Liver, Percutaneous Approach, Diagnostic (ICD-10-PCS; principal; 2023-05-27)
DX: C78.7 Secondary malignant neoplasm of liver and intrahepatic bile duct (principal); E46 Unspecified protein-calorie malnutrition; E87.1 Hypo-osmolality and hyponatremia; Z68.1 Body mass index [BMI] 19.9 or less, adult; K50.90 Crohn's disease, unspecified, without complications; C78.89 Secondary malignant neoplasm of other digestive organs; C80.1 Malignant (primary) neoplasm, unspecified; Z66 Do not resuscitate; Z51.5 Encounter for palliative care; E86.0 Dehydration; G89.3 Neoplasm related pain (acute) (chronic); I95.9 Hypotension, unspecified; D64.9 Anemia, unspecified; I10 Essential (primary) hypertension; K58.9 Irritable bowel syndrome, unspecified; I25.10 Atherosclerotic heart disease of native coronary artery without angina pectoris; F41.9 Anxiety disorder, unspecified; R74.01 Elevation of levels of liver transaminase levels; D72.829 Elevated white blood cell count, unspecified; Z87.891 Personal history of nicotine dependence; Z95.5 Presence of coronary angioplasty implant and graft; Z79.82 Long term (current) use of aspirin; Z79.899 Other long term (current) drug therapy; Z88.1 Allergy status to other antibiotic agents; Z88.2 Allergy status to sulfonamides
CPT/HCPCS: 36415; 70450; 77012; 80048; 80053; 80076; 81000; 82140; 83690; 85007; 85027; 85610; 87077; 87088; 96361; 96374; 99156